=== PATIENT | female | born 1930 | race Caucasian/White ===

== ENCOUNTER 2016-06-06 12:53 | Observation (INO) | payer MEDICARE, BC ==
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
[2016-06-06] MEDS ORDERED: Take Home: Acetaminophen/HYDROcodone 325-10 MG, 5 Tab Pack PO ONE (17:33)
[2016-06-06] MEDS ORDERED: Ondansetron 4 MG Tab.DIS PO PRN (19:49)
[2016-06-06] MEDS ORDERED: Morphine 2 MG/ML Syringe IVPUSH PRN (19:49)
[2016-06-06] MEDS ORDERED: LORazepam 0.5 MG Tab PO SCH (20:00)
[2016-06-06] MEDS ORDERED: Donepezil 10 MG Tab PO SCH (20:00)
[2016-06-06] MEDS: Acetaminophen/HYDROcodone 325-5 MG Tab PO PRN (21:09)
[2016-06-06] MEDS: Enoxaparin 30 MG/0.3 ML Syringe SUBCUT SCH (22:16)
[2016-06-07] MEDS: Acetaminophen/HYDROcodone 325-5 MG Tab PO PRN ×4 (02:05→21:07)
[2016-06-07] MEDS ORDERED: Non-Formulary Medication 1 Each (Multivit-Min/Fa/Lycopene/Lut [Centrum Silver] 1 TAB) PO SCH (08:00)
[2016-06-07] MEDS: Enoxaparin 30 MG/0.3 ML Syringe SUBCUT SCH (08:30)
[2016-06-07] MEDS: SERTRALINE 25 MG PO SCH (08:31)
[2016-06-07] MEDS: LORAZEPAM 0.5 MG PO SCH (08:31)
[2016-06-07] MEDS: Aspirin 81 MG Tab.EC PO SCH (08:31)
[2016-06-07] MEDS: SYNTHROID 88 MCG PO SCH (08:31)
[2016-06-07] MEDS: DONEPEZIL 10 MG PO SCH (08:32)
[2016-06-07] MEDS ORDERED: Multivitamins with Iron/Calcium/Folic Acid/Minerals Tab PO SCH (08:39)
--- NOTE | 2016-06-07 13:25 | PN ---
Progress Note for VIRGINIA Hewitt QUICK Date: 06/07/2016 Room #: VM.203 SUBJECTIVE: Hospital day #2 on an 86-year-old who fell yesterday sustaining an acute L3 vertebral fracture. She has no pain right now. She tells me she is pretty comfortable. She is just resting in bed, but she has had more pain with movement. She is taking assist of 2 to get up and transfer to the commode. She could walk only 4 feet with a front wheel walker. Normally, she lives at home with her . She has not had any trouble breathing. No coughing. No bowel movement since admission. She normally would have one in the morning, but has not been eating all that much per family. OBJECTIVE: Vital Signs: Temperature 97.7, pulse 62, blood pressure 134/70, respiratory rate 18, and O2 of 92% on room air. General: She is in no acute distress. Heart: Regular rate and rhythm with murmur. Lungs: Sounds are clear to auscultation bilaterally without crackles or wheezes. Abdomen: Mildly distended, but soft and nontender. Extremities: Warm and dry. No edema. Musculoskeletal: Spine is palpated. There is some bruising noted, some bruising over her butt, but no tenderness to palpation. Mental Status: She pulled on my name tag to read my name off, but I do not know that she did not recognize me as her doctor. LABORATORY DATA: No lab work was performed on admission. ASSESSMENT: 1. Acute but benign-appearing mild compression fracture of L3 without evidence of retropulsion, mild compression fractures noted at T12 and L2, lumbar spinal stenosis L4-5, which was severe with some right L4 nerve root compression. She denied any leg pain. 2. Underlying dementia requiring 24-hour care. 3. Hypothyroidism with a remote history of thyroid cancer. 4. DVT prophylaxis, on Lovenox. 5. Anxiety. She is on Zoloft and Ativan. 6. Concern for constipation from hydrocodone. She has received about 3 doses. PLAN: At this point, I am going to schedule her senna. I am going to keep her up and working with therapies, potentially self pay swing for at least a couple of days or consider a snf stay. I did discuss with her family that this is going to be a prolonged recovery over the next 1-2 months, but we can certainly take it day by day. If she were to go home, she would need a commode and hospital bed and home health with some care givers in addition to her . For now, we will continue p.r.n. oral pain medicine. We will continue Lovenox for DVT prophylaxis. We will do some lab work tomorrow, start her on incentive spirometry. I am also going to do a bladder scan for postvoid residual. She is a code level 3. She is on observation status for a compression fracture of the spine and we will reassess in the AM on Monday. MKA: 06/07/2016 13:02:05 MODL: 06/07/2016 13:15:55 /[id number] AUDREY
[2016-06-08] MEDS: SYNTHROID 88 MCG PO SCH (06:24)
[2016-06-08] MEDS: Acetaminophen/HYDROcodone 325-5 MG Tab PO PRN (06:24)
[2016-06-08 07:12] LABS: CHLORIDE,CL 103 mmol/L (98-107); SODIUM,NA 140 mmol/L (136-145)
[2016-06-08] MEDS: LORAZEPAM 0.5 MG PO SCH (08:17)
[2016-06-08] MEDS: DONEPEZIL 10 MG PO SCH (08:17)
[2016-06-08] MEDS: Aspirin 81 MG Tab.EC PO SCH (08:19)
[2016-06-08] MEDS: Enoxaparin 30 MG/0.3 ML Syringe SUBCUT SCH (08:19)
[2016-06-08] MEDS: SERTRALINE 25 MG PO SCH (08:20)
[2016-06-08 08:30] VITALS: BP 140/64
--- NOTE | 2016-06-10 08:39 | DISCH ---
PRIMARY DISCHARGE DIAGNOSES: 1. Acute mild compression fracture of L3 after a fall. 2. Old compression fractures T12-L2. 3. Osteoporosis. 4. Underlying dementia requiring 24-hour care. 5. Hypothyroidism. 6. Deep venous thrombosis prophylaxis on Lovenox. 7. Long-standing anxiety. 8. Constipation due to pain medications and immobility and pain. REASON FOR ADMISSION: On the date of admission, this 86-year-old female fell, she had back pain. She had an MRI, which did show the compression fracture as well as severe spinal stenosis. She was assessed by PT, was taking max assist using 2 people to get her up and transition to the commode. She was walking only about 4 feet with her front wheeled walker. Discussion was had with the patient, her , and daughter about staying on self-pay swing bed, trying to arrange for things at home like a hospital bed and commode to eventually get her home with her . PHYSICAL EXAMINATION: Vital Signs: Otherwise, at the time of discharge, the patient's temperature 97.9, pulse 64, blood pressure 140/64, respiratory rate 20, O2 of 92% on room air. General: She is in no acute distress. Heart: Regular rate and rhythm. S1, S2 with murmur. Lungs: Sounds were clear to auscultation bilaterally without crackles or wheezes. Abdomen: Positive bowel sounds. Soft and nontender. Extremities: Warm and dry. No edema. The spine was examined. She did have some tenderness in the mid lumbar area specifically point tenderness over the lumbar vertebrae. She was also complaining of some knee pain during the night. It is unclear if this is any radicular pain or in the knees itself. LABORATORY DATA: Lab work done at the time of discharge did show white count mildly elevated at 11, sodium 140, creatinine 0.8. She had no fevers. DISCHARGE PLANS AND INSTRUCTIONS: She is going over to swing bed for further PT and OT until a point where she is able to return to home safely with family. We will also start her on calcium and D supplements instead of a regular vitamin and place her on calcitonin nasal spray to help with the pain from the compression fracture. She is code level 3. We will continue DVT prophylaxis for a couple more days until she is more mobile. MKA: 06/08/2016 08:50:51 MODL: 06/08/2016 22:44:13 /[id number]
== END 2016-06-08 09:00 | disposition swing bed (61) ==
LOC: VM.ED 12:53 → VM.MS 17:36 → UNDOADMIN 17:36 → VM.MS 17:36
PROVIDERS: ADMIT Nurse Practitioner Family; ATTEND Internal Medicine
DX: M48.56XD Collapsed vertebra, not elsewhere classified, lumbar region, subsequent encounter for fracture with routine healing (principal); M48.54XA Collapsed vertebra, not elsewhere classified, thoracic region, initial encounter for fracture; S39.012A Strain of muscle, fascia and tendon of lower back, initial encounter; F03.90 Unspecified dementia, unspecified severity, without behavioral disturbance, psychotic disturbance, mood disturbance, and anxiety; W19.XXXA Unspecified fall, initial encounter; M41.86 Other forms of scoliosis, lumbar region; I10 Essential (primary) hypertension; E03.9 Hypothyroidism, unspecified; K59.03 Drug induced constipation; F41.9 Anxiety disorder, unspecified; M16.12 Unilateral primary osteoarthritis, left hip; M51.24 Other intervertebral disc displacement, thoracic region; M81.0 Age-related osteoporosis without current pathological fracture; Z79.899 Other long term (current) drug therapy; Z79.82 Long term (current) use of aspirin
CPT/HCPCS: 36415; 51798; 72100; 72146; 72148; 72170; 80048; 85025; 96372; 97161; 99217; 99219; 99225; 99285; A9270; G0378; J1650

== ENCOUNTER 2016-06-08 08:37 | Inpatient (IN) | payer MEDICARE, BC ==
[2016-06-08] MEDS ORDERED: Acetaminophen/HYDROcodone 325-5 MG Tab PO PRN (08:44)
[2016-06-08] MEDS ORDERED: Ondansetron 4 MG Tab.DIS PO PRN (08:44)
[2016-06-08] MEDS: ACETAMINOPHEN PO PRN (12:24)
[2016-06-08] MEDS: Calcitonin (Salmon) Nasal Spray 3.7 ML Bottle NAS SCH (12:24)
[2016-06-08] MEDS: HYDROCODONE PO PRN (12:24)
--- NOTE | 2016-06-08 16:54 | PN ---
Progress Note for VIRGINIA MORALES Date: 06/08/2016 Room #: VM.203 Purpose of the dictation is for documentation for need for a hospital bed. An 86-year-old female, who suffered a compression fracture on 06/06/2016. She is requiring position of at least 30 degrees or greater due to pain from the fracture and need to be able to transfer up and out of bed with assist of her to be able to return home. Her body could not be positioned in a feasible condition in normal bed at home. She does require frequent changes in her body position to provide relief of pain. Otherwise, she does not require any traction. She recommends of bed that is of adjustable heights to help her and her family to get her out of the bed and also to allow for bed rails to help with transfers. This would allow her to get into a wheelchair or standing position. The patient was seen and examined by myself on 06/08/2016. She is currently working with physical therapy on swing bed. She will be working with Interventional Radiology for any potential interventions. I anticipate she will need a hospital bed for the next 2 months if she recovers. MKA: 06/08/2016 16:24:35 MODL: 06/08/2016 16:46:43 /[id number] AUDREY
[2016-06-08] MEDS: Calcium Carbonate/Vitamin D3 1250 MG-200 Unit Tab PO SCH (17:57)
[2016-06-09] MEDS: LEVOTHYROXINE 88 MCG PO SCH (06:47)
[2016-06-09] MEDS ORDERED: Non-Formulary Medication 1 Each PO SCH (07:00)
[2016-06-09] MEDS: Aspirin 81 MG Tab.EC PO SCH (07:43)
[2016-06-09] MEDS: Calcium Carbonate/Vitamin D3 1250 MG-200 Unit Tab PO SCH ×2 (07:43→18:31)
[2016-06-09] MEDS: Calcitonin (Salmon) Nasal Spray 3.7 ML Bottle NAS SCH (07:44)
[2016-06-09] MEDS: ACETAMINOPHEN PO PRN (07:45)
[2016-06-09] MEDS: HYDROCODONE PO PRN (07:45)
[2016-06-09] MEDS: SERTRALINE 25 MG PO SCH (07:45)
[2016-06-09] MEDS ORDERED: Enoxaparin 30 MG/0.3 ML Syringe SUBCUT SCH (08:00)
[2016-06-09] MEDS ORDERED: LORazepam 0.5 MG Tab PO SCH (08:00)
[2016-06-09] MEDS ORDERED: ENOXAPARIN 30 MG SUBCUT SCH (08:00)
[2016-06-09] MEDS ORDERED: Bisacodyl 10 MG Supp RECTAL ONE (08:33)
[2016-06-09] MEDS: Donepezil 10 MG Tab (OWN SUPPLY) PO SCH (19:57)
[2016-06-10] MEDS: HYDROCODONE PO PRN (05:27)
[2016-06-10] MEDS: LEVOTHYROXINE 88 MCG PO SCH ×2 (05:27→06:27)
[2016-06-10] MEDS: ACETAMINOPHEN PO PRN (05:27)
[2016-06-10] MEDS: Calcium Carbonate/Vitamin D3 1250 MG-200 Unit Tab PO SCH ×2 (08:20→17:09)
[2016-06-10] MEDS: Aspirin 81 MG Tab.EC PO SCH (08:20)
[2016-06-10] MEDS: Calcitonin (Salmon) Nasal Spray 3.7 ML Bottle NAS SCH (08:23)
[2016-06-10] MEDS: SERTRALINE 25 MG PO SCH (08:23)
[2016-06-10] MEDS: ENOXAPARIN 30 MG/0.3 ML SUBCUT SCH (08:25)
[2016-06-10] MEDS: Donepezil 10 MG Tab (OWN SUPPLY) PO SCH (21:26)
[2016-06-11] MEDS: LEVOTHYROXINE 88 MCG PO SCH (07:24)
[2016-06-11] MEDS: ENOXAPARIN 30 MG/0.3 ML SUBCUT SCH (07:42)
[2016-06-11] MEDS: Aspirin 81 MG Tab.EC PO SCH (07:43)
[2016-06-11] MEDS: Calcium Carbonate/Vitamin D3 1250 MG-200 Unit Tab PO SCH ×2 (07:43→17:48)
[2016-06-11] MEDS: Calcitonin (Salmon) Nasal Spray 3.7 ML Bottle NAS SCH (07:44)
[2016-06-11] MEDS: SERTRALINE 25 MG PO SCH (07:44)
[2016-06-11] MEDS ORDERED: Lisinopril 5 MG Tab PO SCH ×2 (11:15→20:00)
[2016-06-11] MEDS ORDERED: Bisacodyl 10 MG Supp RECTAL PRN (11:21)
[2016-06-11] MEDS ORDERED: Sodium Phosphate,Monobasic/Sodium Phosphate,Dibasic Enema 133 ML Bottle RECTAL ONE (17:25)
[2016-06-11] MEDS: ACETAMINOPHEN PO PRN (19:23)
[2016-06-11] MEDS: HYDROCODONE PO PRN (19:23)
[2016-06-11] MEDS: Donepezil 10 MG Tab (OWN SUPPLY) PO SCH (19:25)
[2016-06-11] MEDS: Acetaminophen 325 MG Tab PO SCH (19:28)
[2016-06-12] MEDS: HYDROCODONE PO PRN (06:03)
[2016-06-12] MEDS: ACETAMINOPHEN PO PRN (06:03)
[2016-06-12] MEDS: LEVOTHYROXINE 88 MCG PO SCH (06:03)
[2016-06-12] MEDS: Calcitonin (Salmon) Nasal Spray 3.7 ML Bottle NAS SCH (08:15)
[2016-06-12] MEDS: Aspirin 81 MG Tab.EC PO SCH (08:16)
[2016-06-12] MEDS: SERTRALINE 25 MG PO SCH (08:16)
[2016-06-12] MEDS: Acetaminophen 325 MG Tab PO SCH ×3 (08:16→19:50)
[2016-06-12] MEDS: Calcium Carbonate/Vitamin D3 1250 MG-200 Unit Tab PO SCH ×2 (08:16→17:10)
[2016-06-12] MEDS: Donepezil 10 MG Tab (OWN SUPPLY) PO SCH (19:48)
[2016-06-12] MEDS: LISINOPRIL 5 MG PO SCH (19:49)
[2016-06-13] MEDS: LEVOTHYROXINE 88 MCG PO SCH (07:50)
[2016-06-13] MEDS: Calcium Carbonate/Vitamin D3 1250 MG-200 Unit Tab PO SCH ×2 (07:50→18:39)
[2016-06-13] MEDS: Calcitonin (Salmon) Nasal Spray 3.7 ML Bottle NAS SCH (07:51)
[2016-06-13] MEDS: Aspirin 81 MG Tab.EC PO SCH (07:51)
[2016-06-13] MEDS: SERTRALINE 25 MG PO SCH (07:52)
[2016-06-13] MEDS: Acetaminophen 325 MG Tab PO SCH ×4 (07:52→23:55)
[2016-06-13] MEDS: ACETAMINOPHEN PO PRN (07:53)
[2016-06-13] MEDS: HYDROCODONE PO PRN (07:53)
[2016-06-13] MEDS: LISINOPRIL 5 MG PO SCH (23:55)
[2016-06-13] MEDS: Donepezil 10 MG Tab (OWN SUPPLY) PO SCH (23:55)
[2016-06-14] MEDS: LEVOTHYROXINE 88 MCG PO SCH (06:19)
[2016-06-14] MEDS: Acetaminophen 325 MG Tab PO SCH ×3 (08:24→20:51)
[2016-06-14] MEDS: Aspirin 81 MG Tab.EC PO SCH (08:24)
[2016-06-14] MEDS: SERTRALINE 25 MG PO SCH (08:25)
[2016-06-14] MEDS: Calcium Carbonate/Vitamin D3 1250 MG-200 Unit Tab PO SCH ×2 (08:25→19:02)
[2016-06-14] MEDS: Calcitonin (Salmon) Nasal Spray 3.7 ML Bottle NAS SCH (08:26)
[2016-06-14] MEDS: Donepezil 10 MG Tab (OWN SUPPLY) PO SCH (20:51)
[2016-06-14] MEDS: LISINOPRIL 5 MG PO SCH (20:53)
[2016-06-15] MEDS: Acetaminophen 325 MG Tab PO SCH ×4 (04:33→20:25)
[2016-06-15] MEDS: SERTRALINE 25 MG PO SCH ×2 (04:34→07:30)
[2016-06-15] MEDS: LEVOTHYROXINE 88 MCG PO SCH ×3 (04:34→07:29)
[2016-06-15] MEDS: Calcitonin (Salmon) Nasal Spray 3.7 ML Bottle NAS SCH ×2 (04:35→07:30)
[2016-06-15] MEDS: Aspirin 81 MG Tab.EC PO SCH ×2 (04:37→07:30)
[2016-06-15] MEDS: Calcium Carbonate/Vitamin D3 1250 MG-200 Unit Tab PO SCH ×3 (04:37→20:25)
[2016-06-15] MEDS: Donepezil 10 MG Tab (OWN SUPPLY) PO SCH (20:27)
[2016-06-15] MEDS: LISINOPRIL 5 MG PO SCH (20:28)
[2016-06-16] MEDS: LEVOTHYROXINE 88 MCG PO SCH (06:18)
[2016-06-16] MEDS: Calcium Carbonate/Vitamin D3 1250 MG-200 Unit Tab PO SCH ×2 (07:53→19:57)
[2016-06-16] MEDS: Acetaminophen 325 MG Tab PO SCH ×3 (07:53→19:54)
[2016-06-16] MEDS: Aspirin 81 MG Tab.EC PO SCH (07:53)
[2016-06-16] MEDS: Calcitonin (Salmon) Nasal Spray 3.7 ML Bottle NAS SCH (07:56)
[2016-06-16] MEDS: SERTRALINE 25 MG PO SCH (07:57)
[2016-06-16] MEDS ORDERED: Lactulose Soln 10 GM/15 ML 30 ML UD Cup PO SCH (09:03)
[2016-06-16] MEDS: HYDROCODONE PO PRN (09:12)
[2016-06-16] MEDS: ACETAMINOPHEN PO PRN (09:12)
--- NOTE | 2016-06-16 09:30 | PN ---
Progress Note for VIRGINIA Hewitt ANDREW Date: 06/16/2016 Room #: VM.203 SUBJECTIVE: This is an 86-year-old who had an L3 vertebroplasty yesterday. She was doing well last night. But this morning, her pain is more severe. She did not take a pain pill because her fears that it constipates her, but she did have a bowel movement started yesterday. She otherwise has not had any trouble breathing. Her last pain pill was like 3 days ago. OBJECTIVE: Vital Signs: Temperature 98.7, pulse 71, blood pressure 149/75, respiratory rate 20, O2 of 92% on room air. General: She is in no acute distress. Heart: Regular rate and rhythm. S1, S2 without murmur. Lungs: Lungs sounds are clear to auscultation bilaterally without crackles or wheezes. Abdomen: Positive bowel sounds. Soft and nontender. Back: Examined. There is dressing over her lower lumbar spine. When I palpate inferior to that, around L4, she says "ow, ow, you are hurting me." She also did tell me her legs hurt, but there was no pain to palpation. No swelling. ASSESSMENT AND PLAN: Back pain with acute compression fracture L3, now worsening low back pain after improvement with vertebroplasty. We will do a lumbar x-ray today to rule out any further compression. PT will wait until after the x-ray to work with her. OT was already trying to work with her and get her up with the aid, and they were unable. Discussed with her that she will not be stable to go home this morning. Encourage pain management, encourage a bowel regimen. We will add lactulose daily to her Senna Plus. MKA: 06/16/2016 09:07:14 MODL: 06/16/2016 09:23:12 /[id number]
[2016-06-16] MEDS: LACTULOSE 20 GM/30 ML PO SCH (14:26)
[2016-06-16] MEDS: Donepezil 10 MG Tab (OWN SUPPLY) PO SCH (19:54)
[2016-06-16] MEDS: LISINOPRIL 5 MG PO SCH (19:57)
[2016-06-17] MEDS: LEVOTHYROXINE 88 MCG PO SCH (06:31)
[2016-06-17] MEDS: Calcium Carbonate/Vitamin D3 1250 MG-200 Unit Tab PO SCH ×2 (08:53→18:24)
[2016-06-17] MEDS: Aspirin 81 MG Tab.EC PO SCH (08:53)
[2016-06-17] MEDS: Calcitonin (Salmon) Nasal Spray 3.7 ML Bottle NAS SCH (08:53)
[2016-06-17] MEDS: SERTRALINE 25 MG PO SCH (08:55)
[2016-06-17] MEDS: Acetaminophen 325 MG Tab PO SCH ×3 (08:55→20:24)
[2016-06-17] MEDS: HYDROCODONE PO PRN ×2 (08:57→16:27)
[2016-06-17] MEDS: ACETAMINOPHEN PO PRN ×2 (08:57→16:27)
[2016-06-17] MEDS: LACTULOSE 20 GM/30 ML PO SCH (08:57)
[2016-06-17] MEDS: LISINOPRIL 5 MG PO SCH (20:24)
[2016-06-17] MEDS: Donepezil 10 MG Tab (OWN SUPPLY) PO SCH (20:24)
[2016-06-18] MEDS: LEVOTHYROXINE 88 MCG PO SCH (06:50)
[2016-06-18] MEDS: Calcium Carbonate/Vitamin D3 1250 MG-200 Unit Tab PO SCH ×2 (08:08→17:54)
[2016-06-18] MEDS: Aspirin 81 MG Tab.EC PO SCH (08:08)
[2016-06-18] MEDS: Calcitonin (Salmon) Nasal Spray 3.7 ML Bottle NAS SCH (08:08)
[2016-06-18] MEDS: Acetaminophen 325 MG Tab PO SCH ×3 (08:09→20:12)
[2016-06-18] MEDS: SERTRALINE 25 MG PO SCH (08:10)
[2016-06-18] MEDS: LACTULOSE 20 GM/30 ML PO SCH (08:15)
[2016-06-18] MEDS: HYDROCODONE PO PRN (09:03)
[2016-06-18] MEDS: ACETAMINOPHEN PO PRN (09:03)
[2016-06-18] MEDS: LISINOPRIL 5 MG PO SCH (20:13)
[2016-06-18] MEDS: Donepezil 10 MG Tab (OWN SUPPLY) PO SCH (20:13)
[2016-06-19] MEDS: LEVOTHYROXINE 88 MCG PO SCH (06:21)
[2016-06-19] MEDS: Acetaminophen 325 MG Tab PO SCH ×3 (07:47→21:13)
[2016-06-19] MEDS: Calcium Carbonate/Vitamin D3 1250 MG-200 Unit Tab PO SCH ×2 (07:47→17:40)
[2016-06-19] MEDS: Aspirin 81 MG Tab.EC PO SCH (07:47)
[2016-06-19] MEDS: Calcitonin (Salmon) Nasal Spray 3.7 ML Bottle NAS SCH (07:49)
[2016-06-19] MEDS: LACTULOSE 20 GM/30 ML PO SCH (07:53)
[2016-06-19] MEDS: SERTRALINE 25 MG PO SCH (07:53)
[2016-06-19] MEDS: LISINOPRIL 5 MG PO SCH (21:13)
[2016-06-19] MEDS: Donepezil 10 MG Tab (OWN SUPPLY) PO SCH (21:13)
[2016-06-20] MEDS: LEVOTHYROXINE 88 MCG PO SCH (06:45)
[2016-06-20] MEDS: Aspirin 81 MG Tab.EC PO SCH (08:05)
[2016-06-20] MEDS: Acetaminophen 325 MG Tab PO SCH ×3 (08:05→19:54)
[2016-06-20] MEDS: Calcium Carbonate/Vitamin D3 1250 MG-200 Unit Tab PO SCH ×2 (08:05→18:25)
[2016-06-20] MEDS: LACTULOSE 20 GM/30 ML PO SCH (08:07)
[2016-06-20] MEDS: Calcitonin (Salmon) Nasal Spray 3.7 ML Bottle NAS SCH (08:08)
[2016-06-20] MEDS: SERTRALINE 25 MG PO SCH (08:09)
[2016-06-20] MEDS: LISINOPRIL 5 MG PO SCH (19:56)
[2016-06-20] MEDS: Donepezil 10 MG Tab (OWN SUPPLY) PO SCH (19:57)
[2016-06-21] MEDS: LEVOTHYROXINE 88 MCG PO SCH (06:47)
[2016-06-21 06:59] VITALS: BP 136/63
[2016-06-21 07:30] LABS: CHLORIDE,CL 104 mmol/L (98-107); SODIUM,NA 141 mmol/L (136-145)
[2016-06-21] MEDS: Aspirin 81 MG Tab.EC PO SCH (09:31)
[2016-06-21] MEDS: Calcium Carbonate/Vitamin D3 1250 MG-200 Unit Tab PO SCH (09:31)
[2016-06-21] MEDS: Acetaminophen 325 MG Tab PO SCH (09:32)
[2016-06-21] MEDS: SERTRALINE 25 MG PO SCH (09:33)
--- NOTE | 2016-06-22 02:20 | DISCH ---
PRIMARY DISCHARGE DIAGNOSES: 1. An acute L3 compression fracture status post vertebroplasty on 06/15/2016 with some continued pain and immobility related to the fracture. 2. Long-standing moderate dementia with some behavioral disturbances mainly anxiety. She does better when family is at the bedside. There was no concerning behavioral problems noted during her stay. 3. Hyperlipidemia. 4. Hypothyroidism. 5. History of mitral regurgitation. 6. 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 7. Essential hypertension, not on medications on this admission, but lisinopril started and doing well with that. Lab work remained stable. 8. Osteopenia, previously took Fosamax. 9. Essential tremor. 10.Pre-diabetes. 11.Osteoarthritis. 12.Chronic anxiety on Zoloft and Ativan daily. 13.History of diverticulitis in the past. 14.T12 and L2 compression fractures and advanced degenerative disc changes between T11-T12 and L5-S1 based on MRI done 06/06/2016. REASON FOR ADMISSION: On the date of admission, this 86-year-old female who lives at home with her had suffered a fall. She was brought into the emergency room and found to have an L3 compression fracture. We arranged for her to go to [facility] and have evaluation and possible vertebroplasty which was performed on 06/15. She did well postop when she came back she really had no pain that evening, but by the next morning, she was having severe pain again. We did x-rays to rule out any new compression fractures. It was felt that maybe pain pills would help her to function better, so she did take them maybe 1-2 times a day when working with therapy. She started to do better with therapies but still overall was requiring more assistance, therefore family conference was held and decision was made to go to [facility] for further therapies to recover from her injury before returning home. Otherwise, during her stay, she did have some constipation which was worked on with stool softeners and suppositories; however, she began having loose stools, so stool softeners were discontinued and made p.r.n. on discharge, lactulose was discontinued completely. She also had elevated blood pressures during her stay, even up into the 180 systolic. She was started on lisinopril. She was tolerating that. Repeat BMP was okay. Did discuss this with her daughter that the blood pressure pill was to continue at the alf. Otherwise, she did try some calcitonin initially to see if it would help her pain, it did not seem to help, therefore I discontinued that. DISCHARGE PLANS AND INSTRUCTIONS: The patient is being transferred up to [facility]. I will see her on alf rounds on 06/06. No pain pills were ordered. Her last dose in the hospital was on 06/18. If pain pills are needed, they should contact me. PHYSICAL EXAMINATION: Vital signs: Otherwise, her vital signs at the time of discharge show her to have a temperature of 97.7, pulse 65, blood pressure 136/63, respiratory rate 16, and O2 of 95% on room air. General: She is in no acute distress. Heart: Regular rate and rhythm. S1, S2 without murmur. Lungs: Sounds are clear to auscultation bilaterally without crackles or wheezes. Abdomen: Positive bowel sounds. Soft and nontender. Extremities: Warm and dry. No edema. Mental Status: She is alert. She recognizes her , but she is disorientated and forgetful and the fact that she does not even remember having vertebroplasty last week. Otherwise, she did receive some Lovenox for DVT prophylaxis during her stay which was discontinued when she was more ambulatory, otherwise she does have a followup with Dr. Hoffman with IR in the clinic on 06/24 as well and her plans to take her to this appointment. She will continue with alf cares for PT and OT. AMYA: 06/21/2016 11:14:35 MODL: 06/22/2016 02:13:16 /[id number] AUDREY
== END 2016-06-21 11:15 | DRG 561 ==
LOC: VM.MS 09:00 → UNDOADMIN 09:58 → VM.MS 09:58
PROVIDERS: ADMIT Internal Medicine; ATTEND Internal Medicine
DX: S32.030D Wedge compression fracture of third lumbar vertebra, subsequent encounter for fracture with routine healing (principal); S22.080D Wedge compression fracture of T11-T12 vertebra, subsequent encounter for fracture with routine healing; S32.010D Wedge compression fracture of first lumbar vertebra, subsequent encounter for fracture with routine healing; S32.020D Wedge compression fracture of second lumbar vertebra, subsequent encounter for fracture with routine healing; W19.XXXD Unspecified fall, subsequent encounter; M81.0 Age-related osteoporosis without current pathological fracture; F03.90 Unspecified dementia, unspecified severity, without behavioral disturbance, psychotic disturbance, mood disturbance, and anxiety; E03.9 Hypothyroidism, unspecified; F41.9 Anxiety disorder, unspecified; K59.03 Drug induced constipation; E78.5 Hyperlipidemia, unspecified; Z85.850 Personal history of malignant neoplasm of thyroid; I10 Essential (primary) hypertension; Z87.19 Personal history of other diseases of the digestive system
CPT/HCPCS: 36415; 72100; 80048; 85025; 97110-GP; 97116-GP; 97165-GO; 97530-GP; 97535-GO; A9270-GY; J1650

== ENCOUNTER 2016-09-02 14:20 | Emergency (ER) | payer MEDICARE, BC ==
[2016-09-02 15:21] LABS: CHLORIDE,CL 108 mmol/L (98-107); SODIUM,NA 143 mmol/L (136-145)
[2016-09-02] MEDS ORDERED: Sodium Chloride 0.9% 10 ML Syringe FLUSH PRN (16:37)
[2016-09-02] MEDS ORDERED: Morphine 4 MG/ML Syringe IVPUSH ONE (16:47)
--- NOTE | 2016-09-02 18:58 | ER ---
Date of Service: 09/02/2016 HISTORY OF PRESENT ILLNESS: Aditi presents to the emergency room with complaints of pain to her left wrist and upper arm. The patient's states that he was in front of her walking up some stairs to get into their home and the patient was either on the bottom step or on the 2nd step from the bottom and apparently misstepped and fell onto her left side. The patient states that she is not sure if she struck her head, but the states that she was alert after the event. She does have a history of dementia and is currently on Aricept. The patient's only complaints are that of left wrist and pain into her proximal upper arm. She states that she is not experiencing any chest pain or shortness of breath prior to or after the event. PAST MEDICAL HISTORY: 1. Hypertension. 2. Dementia. 3. Chronic constipation. 4. Vitamin D deficiency. 5. Depression. 6. Anxiety. 7. Hypothyroidism. MEDICATIONS: 1. Zoloft. 2. Centrum Silver. 3. Lisinopril. 4. Synthroid. 5. Lorazepam. 6. Aricept. 7. Senna Plus. 8. Calcium plus D. 9. Dulcolax. 10.Low-dose aspirin. 11.Tylenol. ALLERGIES: Codeine. REVIEW OF SYSTEMS: General: Denies any fever or chills or recent illness. HEENT: Denies any head or facial trauma or discomfort. Chest: Denies any chest pain, shortness of breath or chest wall discomfort. Abdomen: Denies any abdominal pain. Pelvis: Denies any pelvic pain. Musculoskeletal: Please see history of present illness. No complaints of discomfort to the lower extremities. PHYSICAL EXAMINATION: General: This is an 86-year-old female patient. No acute distress. Vital Signs: Blood pressure is 161/71, heart rate is 58, respiratory rate 16, O2 saturations 97%, and temp is 96.0. Skin: Warm, pink, and dry. HEENT: Head is normocephalic and atraumatic. Eyes, PERRLA. Extraocular movements are intact. There is no head or facial trauma noted. Spine: No midline C-spine, thoracic, or lumbar discomfort noted on palpation. Chest: No chest wall trauma noted. Lungs: Clear to auscultation. Heart: Regular rate and rhythm. Abdomen: No abdominal trauma on palpation. No bruising or rigidity noted. Pelvis is stable. Musculoskeletal: No discomfort with flexion or extension with manipulation of the hip joints. No obvious trauma noted to the lower extremities. She does have discomfort and swelling to the proximal portion of the left humerus and also evidence of discomfort on palpation of the distal radius and ulna and also to the carpal bones. Neurovascular: Circulation, sensation, and motor function are within normal limits in the distal portion of both her upper and lower extremities. LABORATORY DATA: WBC is 9.0, hemoglobin is 12.0, and platelets are 294. Coags; PT is 10.5, INR is 0.9. Chemistry; sodium is 143, potassium is 3.7, chloride is 108, bicarb is 29, BUN is 15, and creatinine is 0.8. GFR is greater than 60. Glucose is 171, calcium is 8.3, corrected calcium is 9.02, total bilirubin is 0.2, AST is 16, ALT is 21, and alkaline phosphatase is 70. Troponin is less than 0.017. Total protein is 6.6, albumin is 3.1. CT scan of the patient's brain and C-spine were obtained. There was no evidence of any acute pathology. Radiographs of the patient's left humerus were obtained. She does have evidence of a comminuted fracture of the left proximal humerus. Radiographs of the patient's left tibia and fibula were obtained and she does have evidence of a displaced distal radius and ulna fracture. EMERGENCY ROOM COURSE: IV access was established. She was given 4 mg of morphine IV. A short-arm splint was placed on the left wrist. The patient was subsequently placed in a sling and did tolerate this well. She remained stable in my care in the emergency room. ASSESSMENT: Left proximal humerus fracture and left distal radius/ulna fracture. PLAN: I did speak with Dr. Mills, the hand surgeon at [facility] in [place]. I also did speak with Orthopedic surgery regarding the proximal humerus fracture. The humerus fracture will be treated nonoperatively and the wrist fracture will require closed reduction and reduction by a Hand Surgery at [facility] in [place]. Also, the patient is being cared for by her and certainly with her injuries, he will have difficulties managing the patient; so she will require hospitalization at In med/Surg at [facility] and followed up with physical therapy. Social work to see if she is a candidate for placement back in her home. The patient will be transported by ground ambulance. All questions were answered. MWK: 09/02/2016 17:29:12 MODL: 09/02/2016 18:16:22 /[id number]
[2016-09-02 20:28] VITALS: BP 145/67
== END 2016-09-02 17:20 | disposition short-term general hospital (02) ==
LOC: VM.ED 14:20
DX: S42.202A Unspecified fracture of upper end of left humerus, initial encounter for closed fracture (principal); S52.502A Unspecified fracture of the lower end of left radius, initial encounter for closed fracture; S52.602A Unspecified fracture of lower end of left ulna, initial encounter for closed fracture; I10 Essential (primary) hypertension; F03.90 Unspecified dementia, unspecified severity, without behavioral disturbance, psychotic disturbance, mood disturbance, and anxiety; F41.9 Anxiety disorder, unspecified; F32.9 Major depressive disorder, single episode, unspecified; E03.9 Hypothyroidism, unspecified; Z88.5 Allergy status to narcotic agent; W10.8XXA Fall (on) (from) other stairs and steps, initial encounter; Y92.009 Unspecified place in unspecified non-institutional (private) residence as the place of occurrence of the external cause
CPT/HCPCS: 29125; 36415; 70450; 72125; 73060; 73090; 80053; 84484; 85025; 85610; 93005; 96374; 99285; J2270; J7050

== ENCOUNTER 2016-09-20 11:10 | Inpatient (IN) | payer MEDICARE, BC ==
[2016-09-20] MEDS ORDERED: Bisacodyl 5 MG Tab PO PRN (12:56)
[2016-09-20] MEDS: Acetaminophen 500 MG Tab PO SCH ×2 (16:51→20:08)
[2016-09-20] MEDS: Psyllium 0.52 GM Cap PO SCH (20:08)
[2016-09-20] MEDS: Donepezil 10 MG Tab PO SCH (20:08)
--- NOTE | 2016-09-21 00:27 | HP ---
CHIEF COMPLAINT: Left humerus fracture and left wrist fracture. HISTORY OF PRESENT ILLNESS: This is an 86-year-old female, who had a fall at home sustaining those fractures. She was recommended for surgery which she was readmitted on 09/16/2016 and discharged for on 09/20/2016. She underwent ORIF for her radius and ulna was by Dr. Adalberto Mills and then Dr. Candelaria performed an ORIF for the left proximal humerus. She did have some issues with postoperative anemia. However, she did not require any transfusion. She was recommended to continue on aspirin just 81 mg daily for DVT prophylaxis. Initially, she was requiring some oxycodone for pain control, but on discharge she was using just Tylenol. She does have underlying history of dementia. She also has hypothyroidism from a history of thyroid cancer, but her had not increased her from 88 to 100 mcg of levothyroxine yet. Otherwise, Aditi denies any pain today she says to her over and over again, " You won't not leave me, will you," she does not like to be left alone. She denies any trouble breathing. PAST MEDICAL HISTORY: Includes osteoporosis with previous L3 compression fracture and vertebroplasty back in May along with chronic L2 and T12 compression fractures that were treated conservatively. Her last DEXA scan which was done in 2015 had showed her T-score to actually only be -1.6 at the hip. Otherwise, she has had hyperlipidemia, hypothyroidism, mild mitral regurgitation, history of thyroid cancer stage I papillary, adjustment disorder with anxiety and depression, dementia without behavioral disturbance, diverticulitis, previous admission for abscess and IR drainage, osteoarthritis status post left knee replacement, essential tremor, prediabetes, essential hypertension not on medications currently, but has taken up in the past. ALLERGIES: Included codeine, cause is unspecified. MEDICATION: Medication list currently on discharge did include Tylenol 500 mg 2 tablets 3 times a day, Dulcolax as needed, oxycodone as needed, Ativan 0.5 mg daily as needed, levothyroxine 100 mcg daily, Metamucil 1 capsule daily, calcium and vitamin D, multivitamin, Aricept 10 mg daily, Zoloft 25 mg daily and aspirin 81 mg daily. SOCIAL HISTORY: The patient lives at home with her . She has dementia. He is her caregiver. She is a nonsmoker and nondrinker. She did go to nurses training, otherwise. PAST SURGICAL HISTORY: Total thyroidectomy, joint replacement of the left knee, hysterectomy, cholecystectomy, previous back surgery for compression fracture, and appendectomy. FAMILY HISTORY: Both parents are . Brother and sister are . Sister did have dementia, it was her twin sister. Her brother had prostate cancer. REVIEW OF SYSTEMS: General: She denies any trouble with weight, fever, or chills. HEENT: No sore throat. Cardiac: No chest pain. Respiratory: No cough, no shortness of breath. Abdominal: No abdominal pain. No nausea, vomiting, diarrhea, or constipation currently. Musculoskeletal: She denies any arm pain. She had does have some bruising and swelling as to be expected after surgery. Otherwise, all systems reviewed and found to be negative unless otherwise stated. PHYSICAL EXAMINATION: Vital Signs: Include a temperature of 97.7, pulse 72, blood pressure 128/77, respiratory rate 16, and O2 of 96% on room air. General: She is in no acute distress. Heart: Regular rate and rhythm with murmur. Lungs: Sounds are clear to auscultation bilaterally without crackles or wheezes. Abdomen: Positive bowel sounds. Soft and nontender. Extremities: Warm and dry. There is bruising over the left shoulder. There is a bandage in place. I did not remove it today. There is no warmth or drainage. Otherwise, the left wrist incision is covered by a brace with instructions to leave that in place until her followup next Monday, so this was not removed either. Otherwise, her cap refill is good on her fingers on the left hand, finger motion is good. Mental Status: She recognizes her , but she does not remember being in the hospital before or know where she is at currently. LABORATORY DATA: Lab work should be reported that her creatinine was normal at 0.4 couple days ago. Calcium was actually low at 7.6, phosphorus 2.4, albumin 2.9, and hemoglobin was 9.2. ASSESSMENT: 1. Postoperative from an open reduction and internal fixation to the left wrist as well as humerus on 09/16/2016. 2. Postoperative anemia. Hemoglobin had went down on her recheck. 3. Dementia without behavioral disturbances. 4. Anxiety and depression. 5. Mild hypertension, not requiring any medications. 6. Hypothyroidism, slightly under treated with history of thyroid cancer. We will increase her levothyroxine to 100. PLAN: At this point, the patient will continue on swing bed cares. Physical therapy will work with her, PT for hand therapy. She did receive some Lovenox postop in the hospital, but at this point, we will continue on aspirin. She will be in the splint, [place] splint placed by OT, and follow up with Dr. Mills around 09/26/2016 and hand therapy as well. She will have suture removal at that appointment. Her appointment with [facility] was discontinued. I have discussed extensively with him trying the Forteo shots again especially while she is in the hospital to aid with bone healing, her is agreeable to this. Otherwise, she is also nonweightbearing on the left wrist and arm. She will keep her shoulder in the sling. Her would like to take her home as soon as possible, but does not know how to manage the slings and currently is okay with her being in swing bed. Discussed also with him that she will be a code 3, no CPR. I asked the social media manager to update their forms that were filled out at [facility]. The daughter is also present for this discussion and said it is up to her father as well, but he understood that, Aditi at this point has dementia, she is also getting frailer, so if she did have an unexpected cardiac arrest, I would not anticipate she would have a good recovery from that or even much chance of surviving, but around the time of surgery, I did say it is important to follow through with treatments which she has been through that 24 to 48 hour process already. Otherwise, the patient will only be on Tylenol for pain control unless she is needing further pain management, at that point, the nurses should contact me. All medications will be available p.r.n. MKA: 09/20/2016 19:38:29 MODL: 09/21/2016 00:22:42 /[id number]
[2016-09-21] MEDS: Levothyroxine 100 MCG Tab PO SCH (06:35)
[2016-09-21] MEDS ORDERED: Calcium Carbonate/Vitamin D3 1250 MG-200 Unit Tab PO SCH (08:00)
[2016-09-21] MEDS: Sertraline 25 MG Tab PO SCH (08:46)
[2016-09-21] MEDS: LORazepam 0.5 MG Tab PO SCH (08:47)
[2016-09-21] MEDS: Aspirin 81 MG Tab.EC PO SCH (08:47)
[2016-09-21] MEDS: Acetaminophen 500 MG Tab PO SCH ×3 (08:47→20:38)
[2016-09-21] MEDS: Multivitamins with Iron/Calcium/Folic Acid/Minerals Tab PO SCH (08:47)
[2016-09-21] MEDS: Donepezil 10 MG Tab PO SCH (20:38)
[2016-09-21] MEDS: Psyllium 0.52 GM Cap PO SCH (20:39)
[2016-09-22] MEDS: Levothyroxine 100 MCG Tab PO SCH (06:13)
[2016-09-22] MEDS: Calcium Citrate/Vitamin D3 315 MG-250 Unit Tab PO SCH (08:52)
[2016-09-22] MEDS: Aspirin 81 MG Tab.EC PO SCH (08:53)
[2016-09-22] MEDS: Sertraline 25 MG Tab PO SCH (08:53)
[2016-09-22] MEDS: Multivitamins with Iron/Calcium/Folic Acid/Minerals Tab PO SCH (08:53)
[2016-09-22] MEDS: Acetaminophen 500 MG Tab PO SCH ×3 (08:54→20:07)
[2016-09-22] MEDS: LORazepam 0.5 MG Tab PO SCH (08:54)
[2016-09-22] MEDS: Donepezil 10 MG Tab PO SCH (20:07)
[2016-09-22] MEDS: Psyllium 0.52 GM Cap PO SCH (20:42)
[2016-09-23] MEDS: Levothyroxine 100 MCG Tab PO SCH (06:20)
[2016-09-23] MEDS: LORazepam 0.5 MG Tab PO SCH (08:07)
[2016-09-23] MEDS: Sertraline 25 MG Tab PO SCH (08:07)
[2016-09-23] MEDS: Multivitamins with Iron/Calcium/Folic Acid/Minerals Tab PO SCH (08:08)
[2016-09-23] MEDS: Aspirin 81 MG Tab.EC PO SCH (08:08)
[2016-09-23] MEDS: Calcium Citrate/Vitamin D3 315 MG-250 Unit Tab PO SCH (08:08)
[2016-09-23] MEDS: Acetaminophen 500 MG Tab PO SCH ×3 (08:08→20:20)
--- NOTE | 2016-09-23 16:02 | PN ---
Progress Note for VIRGINIA Hewitt QUICK Date: 09/23/2016 Room #: VM.221 SUBJECTIVE: This is an 86-year-old on swing bed after surgery for a left humerus and wrist fracture. She has a followup with Orthopedics next week. They will remove her jose and splint. She otherwise has no concerns. She denies pain. She has not required any narcotics. Her blood pressure has run higher. This had happened also previously when she was here. She seems to be more anxious in the morning until family or caregiver are with her. In the room currently, she is with a caregiver who just fixed her hair. She is in a pleasant mood. OBJECTIVE: Vital Signs: Her temperature is 98.4, pulse 76,blood pressure 164/92, respiratory rate 18, and O2 of 97% on room air. General: She is in no acute distress heart regular rate and rhythm with murmur. Lungs: Sounds are clear to auscultation bilaterally without crackles or wheezes. ASSESSMENT: Postoperative from an open reduction internal fixation to the left wrist as well to the humerus 08/2016, postoperative anemia with repeat hemoglobin of 9.2 on 09/21, dementia without behavioral disturbance, anxiety and depression, mild hypertension, hypothyroidism on increased doses of levothyroxine. PLAN: At this point, she will continue swing bed cares with PT and OT. Family meeting will be had next week. was actually hopeful to take her home as soon as possible. Follow up with ortho in the clinic next week. Continue Tylenol for pain control. Continue to monitor blood pressures and we will do another CBC on Monday. MKA: 09/23/2016 15:04:37 MODL: 09/23/2016 15:15:17 /[id number] AUDREY
[2016-09-23] MEDS: Donepezil 10 MG Tab PO SCH (20:22)
[2016-09-23] MEDS: Psyllium 0.52 GM Cap PO SCH (20:22)
[2016-09-24] MEDS: Levothyroxine 100 MCG Tab PO SCH (06:37)
[2016-09-24] MEDS: LORazepam 0.5 MG Tab PO SCH (07:25)
[2016-09-24] MEDS: Sertraline 25 MG Tab PO SCH (07:25)
[2016-09-24] MEDS: Aspirin 81 MG Tab.EC PO SCH (07:25)
[2016-09-24] MEDS: Multivitamins with Iron/Calcium/Folic Acid/Minerals Tab PO SCH (07:25)
[2016-09-24] MEDS: Calcium Citrate/Vitamin D3 315 MG-250 Unit Tab PO SCH (07:25)
[2016-09-24] MEDS: Acetaminophen 500 MG Tab PO SCH ×3 (07:26→20:16)
[2016-09-24] MEDS: Donepezil 10 MG Tab PO SCH (20:16)
[2016-09-24] MEDS: Psyllium 0.52 GM Cap PO SCH (20:17)
[2016-09-25] MEDS: Levothyroxine 100 MCG Tab PO SCH (06:39)
[2016-09-25] MEDS: Aspirin 81 MG Tab.EC PO SCH (07:39)
[2016-09-25] MEDS: Multivitamins with Iron/Calcium/Folic Acid/Minerals Tab PO SCH (07:39)
[2016-09-25] MEDS: LORazepam 0.5 MG Tab PO SCH (07:39)
[2016-09-25] MEDS: Sertraline 25 MG Tab PO SCH (07:39)
[2016-09-25] MEDS: Acetaminophen 500 MG Tab PO SCH ×3 (07:39→19:59)
[2016-09-25] MEDS: Calcium Citrate/Vitamin D3 315 MG-250 Unit Tab PO SCH (07:39)
[2016-09-25] MEDS: Donepezil 10 MG Tab PO SCH (19:58)
[2016-09-25] MEDS: Psyllium 0.52 GM Cap PO SCH (20:01)
[2016-09-26] MEDS: Levothyroxine 100 MCG Tab PO SCH (06:23)
[2016-09-26] MEDS: LORazepam 0.5 MG Tab PO SCH (07:35)
[2016-09-26] MEDS: Calcium Citrate/Vitamin D3 315 MG-250 Unit Tab PO SCH (07:35)
[2016-09-26] MEDS: Multivitamins with Iron/Calcium/Folic Acid/Minerals Tab PO SCH (07:35)
[2016-09-26] MEDS: Acetaminophen 500 MG Tab PO SCH ×3 (07:36→19:35)
[2016-09-26] MEDS: Aspirin 81 MG Tab.EC PO SCH (07:36)
[2016-09-26] MEDS: Sertraline 25 MG Tab PO SCH (07:36)
[2016-09-26] MEDS: Donepezil 10 MG Tab PO SCH (19:35)
[2016-09-26] MEDS: Psyllium 0.52 GM Cap PO SCH (20:07)
[2016-09-27] MEDS: Levothyroxine 100 MCG Tab PO SCH (06:24)
[2016-09-27] MEDS: Sertraline 25 MG Tab PO SCH (07:40)
[2016-09-27] MEDS: Aspirin 81 MG Tab.EC PO SCH (07:40)
[2016-09-27] MEDS: Calcium Citrate/Vitamin D3 315 MG-250 Unit Tab PO SCH (07:40)
[2016-09-27] MEDS: Multivitamins with Iron/Calcium/Folic Acid/Minerals Tab PO SCH (07:40)
[2016-09-27] MEDS: LORazepam 0.5 MG Tab PO SCH (07:40)
[2016-09-27] MEDS: Acetaminophen 500 MG Tab PO SCH ×3 (07:41→20:00)
[2016-09-27] MEDS: Donepezil 10 MG Tab PO SCH (20:00)
[2016-09-27] MEDS: Psyllium 0.52 GM Cap PO SCH (21:58)
[2016-09-28] MEDS: Levothyroxine 100 MCG Tab PO SCH (06:18)
[2016-09-28] MEDS: LORazepam 0.5 MG Tab PO SCH (07:39)
[2016-09-28] MEDS: Sertraline 25 MG Tab PO SCH (07:40)
[2016-09-28] MEDS: Aspirin 81 MG Tab.EC PO SCH (07:40)
[2016-09-28] MEDS: Calcium Citrate/Vitamin D3 315 MG-250 Unit Tab PO SCH (07:40)
[2016-09-28] MEDS: Multivitamins with Iron/Calcium/Folic Acid/Minerals Tab PO SCH (07:40)
[2016-09-28] MEDS: Acetaminophen 500 MG Tab PO SCH ×3 (07:41→19:52)
[2016-09-28] MEDS: Donepezil 10 MG Tab PO SCH (19:52)
[2016-09-28] MEDS: Psyllium 0.52 GM Cap PO SCH (19:53)
[2016-09-29] MEDS: Levothyroxine 100 MCG Tab PO SCH (06:13)
[2016-09-29] MEDS: Calcium Citrate/Vitamin D3 315 MG-250 Unit Tab PO SCH (08:23)
[2016-09-29] MEDS: Multivitamins with Iron/Calcium/Folic Acid/Minerals Tab PO SCH (08:24)
[2016-09-29] MEDS: Aspirin 81 MG Tab.EC PO SCH (08:25)
[2016-09-29] MEDS: Acetaminophen 500 MG Tab PO SCH ×3 (08:25→20:04)
[2016-09-29] MEDS: LORazepam 0.5 MG Tab PO SCH (08:25)
[2016-09-29] MEDS: Sertraline 25 MG Tab PO SCH (08:25)
[2016-09-29] MEDS: Psyllium 0.52 GM Cap PO SCH (20:04)
[2016-09-29] MEDS: Donepezil 10 MG Tab PO SCH (20:04)
[2016-09-30 06:15] VITALS: BP 131/74
[2016-09-30] MEDS: Levothyroxine 100 MCG Tab PO SCH (06:38)
[2016-09-30] MEDS: Acetaminophen 500 MG Tab PO SCH (07:47)
[2016-09-30] MEDS: Calcium Citrate/Vitamin D3 315 MG-250 Unit Tab PO SCH (07:48)
[2016-09-30] MEDS: LORazepam 0.5 MG Tab PO SCH (07:48)
[2016-09-30] MEDS: Multivitamins with Iron/Calcium/Folic Acid/Minerals Tab PO SCH (07:48)
[2016-09-30] MEDS: Aspirin 81 MG Tab.EC PO SCH (07:48)
[2016-09-30] MEDS: Sertraline 25 MG Tab PO SCH (07:49)
--- NOTE | 2016-09-30 21:18 | DISCH ---
PRIMARY DISCHARGE DIAGNOSIS: Postoperative from a left humerus fracture and left wrist fracture status post ORIF of the radius and ulna on 09/16/2016 and ORIF of the left proximal humerus on 09/20/2016. SECONDARY DISCHARGE DIAGNOSES: 1. Osteoporosis with pathologic fracture with previous L3 compression fracture and vertebroplasty back in 05/2016 and chronic L2 and T12 compression fractures treated conservatively. 2. Degenerative disc disease of the spine. 3. Hyperlipidemia. 4. Hypothyroidism with history of thyroid cancer. 5. Mild mitral regurgitation. 6. Adjustment disorder with anxiety and depression. 7. Dementia without behavioral disturbance. 8. Previous diverticulitis. 9. Osteoarthritis. 10.Essential tremor. 11.Prediabetes. 12.Essential hypertension, not on medications. REASON FOR ADMISSION: On the date of admission, this 86-year-old female was transferred back from [place] to [place] for further cares after surgical correction of fractures. She had OT and PT work with her. She had a splint in place from [place] and had follow-ups with her orthopedic doctor on 09/27 for a wound and skin checks. Everything had been healing and doing fine. She continue to work with therapies. She was continued on aspirin for DVT prophylaxis. Her blood pressures improved during her stay. She never required any medications. She never required any pain pills other than Tylenol and overall was doing well. LABORATORY DATA: Lab work during her stay was monitored. Her hemoglobin was 9.2 and improved up to 10.3 on 09/26. Otherwise, discussion was had with her and her regarding using medications like Forteo or TYMLOS for bone health. Unfortunately, she had already used the free sample of Forteo even though she never got the medication. The co-pay was going to be nearly $1000, so arrangements are being made to try to get her a sample of the TYMLOS medication. I discussed in depth the side effects and things to look out for, for her . Her daughter did call later with other concerns. There were especially concerned about diarrhea, however, this is not one of the side effects. Other side effects could include orthostatic hypotension, increased calcium levels, nausea, dizziness, even rare instance of osteosarcoma, which is a rare bone tumor, but this medication is used for 1-2 years as a daily shot and local injection site reactions are probably the most common thing to look out for. The patient will be going home on Home Health, so I told her that likely those nurses will be coming out to teach her how to use the medication. PHYSICAL EXAMINATION: Vital Signs: On discharge include a temperature 97.1, pulse 75, blood pressure 131/74, respiratory rate 16, and O2 of 95% on room air. General: She is in no acute distress. Heart: Regular rate and rhythm with murmur. Lungs: Sounds are clear to auscultation bilaterally without crackles or wheezes. Abdomen: Positive bowel sounds, soft and nontender. Extremities: Warm and dry. No edema. The left arm is examined. The incisions over the left upper shoulder are intact and well healing. Splint is in place on the left wrist. Otherwise, she has good cap refill in her fingers. The swelling and bruising have improved. Mental Status: She is alert. She recognizes her . HOME HEALTH ADDENDUM: The patient requires nursing, PT to assist and teach her to perform skills, especially home therapies and OT should be included as well for the hand therapy to aid in her healing from the recent fracture and surgery. I will periodically review this plan of care and [id number] documentation was done by Dr. Lorenzo on 09/30/2016. The patient is homebound due to her dementia and also limited mobility due to recent falls and fracture. FOLLOW UP: The patient will follow up with Dr. Lorenzo in the clinic on 10/11, but has appointments with Orthopedics on 10/20 and 10/27. She was given instructions to follow up with orthopedic recommendations for further therapies and wound cares and likely will be getting a new splint when she sees them for followup. She also has a shoulder immobilizer, which she is supposed to wear to protect her shoulder. MKA: 09/30/2016 18:10:31 MODL: 09/30/2016 20:52:56 /[id number]
== END 2016-09-30 09:50 | disposition home health service (06) | DRG 560 ==
LOC: VM.MS 12:10
PROVIDERS: ADMIT Internal Medicine; ATTEND Internal Medicine
DX: S42.202D Unspecified fracture of upper end of left humerus, subsequent encounter for fracture with routine healing (principal); D62 Acute posthemorrhagic anemia; S52.92XD Unspecified fracture of left forearm, subsequent encounter for closed fracture with routine healing; S52.202D Unspecified fracture of shaft of left ulna, subsequent encounter for closed fracture with routine healing; M48.54XD Collapsed vertebra, not elsewhere classified, thoracic region, subsequent encounter for fracture with routine healing; E78.5 Hyperlipidemia, unspecified; I10 Essential (primary) hypertension; E03.9 Hypothyroidism, unspecified; Z85.850 Personal history of malignant neoplasm of thyroid; I34.0 Nonrheumatic mitral (valve) insufficiency; F43.23 Adjustment disorder with mixed anxiety and depressed mood; F03.90 Unspecified dementia, unspecified severity, without behavioral disturbance, psychotic disturbance, mood disturbance, and anxiety; M19.90 Unspecified osteoarthritis, unspecified site; G25.0 Essential tremor; R73.03 Prediabetes; Z91.81 History of falling; Z96.652 Presence of left artificial knee joint; Z79.82 Long term (current) use of aspirin; Z79.899 Other long term (current) drug therapy; Z66 Do not resuscitate
CPT/HCPCS: 36415; 85025; 97110-GO; 97110-GP; 97116-GP; 97161-GP; 97165-GO; 97530-GP; 97535-GO; A9270-GY

== ENCOUNTER 2016-10-14 16:34 | Emergency (ER) | payer MEDICARE, BC ==
--- NOTE | 2016-10-14 16:46 | EDM.PDOC ---
ED HPI GENERAL MEDICAL PROBLEM - General Chief Complaint: Skin Complaint Stated Complaint: nose cut Time Seen by Provider: 10/14/16 16:36 Source of Information: Reports: Patient, Family History Limitations: Reports: Physical Impairment - History of Present Illness INITIAL COMMENTS - FREE TEXT/NARRATIVE: Patient comesin after falling in her living room at home. She tripped. She did not lose consciousness. Her glasses did lacerate the bridge of her nose. There is no misalignment of her nose or swelling. She denies pain. Patient has history of dementia, still at home with her who brings her in. Essential tremors. Does not take anticoagulation. She has no other complaints today. No neurological changes since her fall. and son bring her in against her wishes for evaluation. Onset: Today, Sudden Location: Reports: Face (nose) Front/Back Body Image: 1 - linear lac to bridge of nose Severity: Mild Improves with: Reports: Other (pressure held) Associated Symptoms: Reports: No Other Symptoms - Related Data Allergies Allergy/AdvReac Type Severity Reaction Status Date / Time codeine Allergy Cannot Verified 10/14/16 16:45 Remember Home Meds: Home Meds Aspirin [Low Dose Aspirin EC] 81 mg PO DAILY 11/11/13 [History] Donepezil HCl [Aricept] 10 mg PO BEDTIME 11/11/13 [History] Multivit-Min/FA/Lycopene/Lut [Centrum Silver] 1 tab PO DAILY 11/11/13 [History] LORazepam 0.5 mg PO DAILY 11/30/13 [History] Sertraline [Zoloft] 25 mg PO DAILY 06/06/16 [History] Acetaminophen [Acetaminophen Extra Strength] 1,000 mg PO TID 09/20/16 [History] Bisacodyl [Dulcolax] 5 mg PO BID PRN 09/20/16 [History] Calcium Citrate/Vitamin D3 [Calcium Cit-Vit D 315-200] 1 tab PO DAILY 09/20/16 [ History] Psyllium [Metamucil] 0.52 gm PO BEDTIME 09/20/16 [History] Levothyroxine [Synthroid] 100 mcg PO ACBREAKFAST #30 tablet 09/30/16 [Rx] Past Medical History Cardiovascular History: Reports: Heart Murmur, Hypertension Gastrointestinal History: Reports: Diverticulosis Musculoskeletal History: Reports: Back Pain, Chronic, Fracture, Osteoarthritis Neurological History: Reports: Alzheimers Disease Psychiatric History: Reports: Alzheimers Disease, Dementia, Depression Endocrine/Metabolic History: Reports: Hypothyroidism Oncologic (Cancer) History: Reports: Thyroid - Infectious Disease History Infectious Disease History: Reports: Chicken Pox - Past Surgical History Cardiovascular Surgical History: Reports: None GI Surgical History: Reports: None Endocrine Surgical History: Reports: Thyroidectomy Neurological Surgical History: Reports: Laminectomy Musculoskeletal Surgical History: Reports: ORIF Social & Family History - Family History Family Medical History: Noncontributory - Tobacco Use Smoking Status *Q: Never Smoker Years of Tobacco use: 3 Used Tobacco, but Quit: No Second Hand Smoke Exposure: No - Caffeine Use Caffeine Use: Reports: Coffee - Alcohol Use Days Per Week of Alcohol Use: 0 - Recreational Drug Use Recreational Drug Use: No ED ROS GENERAL - Review of Systems Review Of Systems: See Below Constitutional: Reports: No Symptoms HEENT: Reports: No Symptoms Respiratory: Reports: No Symptoms Cardiovascular: Reports: No Symptoms Endocrine: Reports: No Symptoms GI/Abdominal: Reports: No Symptoms : Reports: No Symptoms Musculoskeletal: Reports: No Symptoms Skin: Reports: Wound (cut on the nose) Neurological: Reports: No Symptoms Psychiatric: Reports: No Symptoms Hematologic/Lymphatic: Reports: No Symptoms Immunologic: Reports: No Symptoms ED EXAM, SKIN/RASH Exam: See Below Exam Limited By: Physical Impairment General Appearance: Alert, WD/WN, No Apparent Distress Eye Exam: Bilateral Eye: EOMI, PERRL Nose: Other (2 cm lac linear on bridge) Throat/Mouth: Normal Inspection Head: Normocephalic Neck: Normal Inspection Neurological: Alert, CN II-XII Intact, Sensory/Motor Deficit (essential tremors, ) Psychiatric: Normal Affect, Normal Mood Skin: Warm, Dry, Normal Color, No Rash Location, Skin: Face (nose) Characteristics: Linear Lymphatic: No Adenopathy ED SKIN PROCEDURES - Laceration/Wound Repair Middle Midline Nose Lac/Wound length In cm: 2 Appearance: Superficial, Linear Distal NVT: Neuro & Vascular Intact Anesthetic Type: Local Local Anesthesia - Lidocaine (Xylocaine): 1% Plain Local Anesthetic Volume: 2cc Skin Prep: Chlorhexidine (Hibiciens) Exploration/Debridement/Repair: Wound Explored, In a Bloodless Field, Explored to Base, No Foreign Material Found Closed with: Sutures Suture Size: other (6.0) # of Sutures: 3 Suture Type: Nylon, Interrupted Sterile Dressing Applied: Nurse Tetanus Status Addressed: Yes Complications: No Course - Vital Signs Last Recorded V/S: Last Vital Signs Temp 36.8 C 10/14/16 16:34 Pulse 86 10/14/16 16:34 Resp 16 10/14/16 16:34 BP 138/78 10/14/16 16:34 Pulse Ox 94 L 10/14/16 16:34 - Orders/Labs/Meds Meds: Medications Discontinued Medications Generic Name Dose Route Start Last Admin Trade Name Lori PRN Reason Stop Dose Admin Lidocaine HCl 5 ml 10/14/16 16:36 10/14/16 16:45 Xylocaine-Mpf 1% INJECT 10/14/16 16:37 5 ml ONETIME ONE Administration Departure - Departure Time of Disposition: 17:19 Disposition: Home, Self-Care 01 Condition: Good Clinical Impression: Laceration of nose without complication Qualifiers: Encounter type: initial encounter Qualified Code(s): S01.21XA - Laceration without foreign body of nose, initial encounter - Discharge Information Instructions: Mouth Laceration, [id number], Wound Infection, [id number] Referrals: Angelina Lorenzo, [Primary Care Provider] - Forms: ED Department Discharge Additional Instructions: Keep your wound clean and dry. You can shower and pat dry. Do no submerge in water; bathwater, pool, hot tub, river etc. See the clinic for suture removal in 7-10 days. Watch for signs of infection that can include fever over 101.5 F, increased swelling, redness, site is hot to the touch, and purulent drainage from the wound. You can call us with any questions or concerns at any time. - Problem List & Annotations (1) Laceration of nose without complication SNOMED Code(s): 374421725 Code(s): S01.21XA - LACERATION WITHOUT FOREIGN BODY OF NOSE, INITIAL ENCOUNTER Status: Acute Priority: Low Qualifiers: Encounter type: initial encounter Qualified Code(s): S01.21XA - Laceration without foreign body of nose, initial encounter - Problem List Review Problem List Initiated/Reviewed/Updated: Yes - Assessment/Plan Assessment:: Nasal laceration Plan: Keep your wound clean and dry. You can shower and pat dry. Do no submerge in water; bathwater, pool, hot tub, river etc. See the clinic for suture removal in 7-10 days. Watch for signs of infection that can include fever over 101.5 F, increased swelling, redness, site is hot to the touch, and purulent drainage from the wound. You can call us with any questions or concerns at any time.
[2016-10-14 16:55] VITALS: BP 138/78
== END 2016-10-14 17:19 | disposition home or self-care (01) ==
LOC: VM.ED 16:34
DX: S01.21XA Laceration without foreign body of nose, initial encounter (principal); I10 Essential (primary) hypertension; M19.90 Unspecified osteoarthritis, unspecified site; G30.9 Alzheimer's disease, unspecified; F02.80 Dementia in other diseases classified elsewhere, unspecified severity, without behavioral disturbance, psychotic disturbance, mood disturbance, and anxiety; E03.9 Hypothyroidism, unspecified; Z88.5 Allergy status to narcotic agent; Z79.82 Long term (current) use of aspirin; W25.XXXA Contact with sharp glass, initial encounter; W01.0XXA Fall on same level from slipping, tripping and stumbling without subsequent striking against object, initial encounter; Y92.009 Unspecified place in unspecified non-institutional (private) residence as the place of occurrence of the external cause
CPT/HCPCS: 12011; 99283; 99283-GF-25

== ENCOUNTER 2019-04-04 18:59 | Observation (INO) | payer MEDICARE, BC ==
[2019-04-04] MEDS ORDERED: Sodium Chloride 0.9% 10 ML Syringe FLUSH PRN (19:11)
--- NOTE | 2019-04-04 19:52 | CR ---
[id number] RAD/RAD Chest PA or AP 1V EXAM: RAD Chest PA or AP 1V INDICATION: CONFUSION COMPARISON: None. DISCUSSION: Cardiomediastinal silhouette is normal in size and contour. No infiltrate, effusion, pneumothorax, or edema. IMPRESSION: Negative for pneumonia or other significant abnormality in the chest. Espinoza Vallejo MD 04/04/191950 Thank you for allowing us to participate in the care of your patient.
--- NOTE | 2019-04-04 19:59 | EDM.PDOC ---
ED HPI GENERAL MEDICAL PROBLEM - General Chief Complaint: Neuro Symptoms/Deficits Stated Complaint: neuro deficits Time Seen by Provider: 04/04/19 19:05 Source of Information: Reports: Family History Limitations: Reports: No Limitations - History of Present Illness INITIAL COMMENTS - FREE TEXT/NARRATIVE: Pt. presents to ER via private vehicle. Pt. lives with her elderly at home. He states that the patient has been having problems with ambulation, decreased level of consciousness for at least 24 hours. He states that he noticed a change in her mentation yesterday afternoon. At that time, Pt. appeared to have trouble ambulating at home. She has advanced dementia and is ambulatory with assistance. Pt. daughter states that she normally has some verbal output but states that it became diminished last night as well. Pt. has not offered any complaint. states that she has had some cough and chest congestion for several days. No recent falls or trauma. He has not been checking her temp. No vomiting. Pt. med record indicates worsening mental status when seen by PCP back in Nov. She has not been seen by her primary since then, but family indicates that her dementia appears to be worsening as well. Family states, however, that she was able to ambulate with assistance, eat and swallow foods, but this had diminished since last evening. Onset: Today Onset Date: 04/04/19 Location: Reports: Generalized - Related Data Allergies Allergy/AdvReac Type Severity Reaction Status Date / Time codeine Allergy Cannot Verified 04/04/19 19:17 Remember Home Meds: Home Meds Donepezil HCl [Aricept] 10 mg PO BEDTIME 11/11/13 [History] Multivit-Min/FA/Lycopene/Lut [Centrum Silver] 1 tab PO DAILY 11/11/13 [History] Calcium Citrate/Vitamin D3 [Calcium Cit-Vit D 315-200] 1 tab PO DAILY 09/20/16 [ History] Psyllium [Metamucil] 0.52 gm PO BEDTIME 09/20/16 [History] Levothyroxine [Synthroid] 100 mcg PO ACBREAKFAST #30 tablet 09/30/16 [Rx] Cholecalciferol (Vitamin D3) [Vitamin D3] 2,000 unit PO DAILY 04/04/19 [History] Ipratropium [Atrovent HFA Inh] 1 puff .XX BID 04/04/19 [History] Past Medical History Cardiovascular History: Reports: Heart Murmur, Hypertension Gastrointestinal History: Reports: Diverticulosis Musculoskeletal History: Reports: Back Pain, Chronic, Fracture, Osteoarthritis Neurological History: Reports: Alzheimers Disease Psychiatric History: Reports: Alzheimers Disease, Dementia, Depression Endocrine/Metabolic History: Reports: Hypothyroidism Oncologic (Cancer) History: Reports: Thyroid - Infectious Disease History Infectious Disease History: Reports: Chicken Pox - Past Surgical History Cardiovascular Surgical History: Reports: None GI Surgical History: Reports: None Endocrine Surgical History: Reports: Thyroidectomy Neurological Surgical History: Reports: Laminectomy Musculoskeletal Surgical History: Reports: ORIF Social & Family History - Family History Family Medical History: Noncontributory - Caffeine Use Caffeine Use: Reports: Coffee ED ROS GENERAL - Review of Systems Review Of Systems: Unable To Obtain Reason Not Obtained: non-verbal ED EXAM, GENERAL - Physical Exam Exam: See Below Exam Limited By: No Limitations General Appearance: Alert, WD/WN, No Apparent Distress Eye Exam: Bilateral Eye: EOMI Course - Vital Signs Last Recorded V/S: Last Vital Signs Temp 36.8 C 04/04/19 20:42 Pulse 70 04/04/19 20:42 Resp 16 04/04/19 20:42 BP 144/66 H 04/04/19 20:42 Pulse Ox 95 04/04/19 20:42 - Orders/Labs/Meds Orders: Active Orders 24 hr Category Date Time Status Patient Status [ADT] Routine ADT 04/04/19 20:42 Ordered EKG Documentation Completion [RC] STAT Care 04/04/19 19:11 Active CULTURE BLOOD [BC] Stat Lab 04/04/19 19:27 Received CULTURE BLOOD [BC] Stat Lab 04/04/19 19:37 Results Sodium Chloride 0.9% [Saline Flush] Med 04/04/19 19:11 Active 10 ml FLUSH ASDIRECTED PRN Blood Culture x2 Reflex Set [OM.PC] Stat Oth 04/04/19 19:12 Ordered Peripheral IV Insertion Adult [OM.PC] Routine Oth 04/04/19 19:12 Ordered Medication Orders Sodium Chloride (Saline Flush) 10 ml FLUSH ASDIRECTED PRN PRN Reason: Keep Vein Open Labs: Laboratory Tests 04/04/19 04/04/19 04/04/19 Range/Units 19:27 19:27 19:27 WBC 8.0 (4.0-10.0) x10^3/uL RBC 4.51 (4.00-5.50) x10^6/uL Hgb 12.7 D (12.0-16.0) g/dL Hct 39.6 (33.0-47.0) % MCV 87.8 D (78.0-93.0) fL MCH 28.2 (26.0-32.0) pg MCHC 32.1 (32.0-36.0) g/dL RDW Coeff of [place]one 13.1 (10.0-15.0) % Plt Count 334 D (130-400) x10^3/uL Neut % (Auto) 63.3 (50.0-80.0) % Lymph % (Auto) 19.8 L (25.0-50.0) % [place] % (Auto) 10.1 (2.0-11.0) % Eos % (Auto) 5.9 H (0.0-4.0) % Baso % (Auto) 0.9 (0.2-1.2) % PT 10.4 (10.0-12.8) SEC INR 0.9 L (2.0-3.5) Sodium 137 (136-145) mmol/L Potassium 3.8 (3.5-5.1) mmol/L Chloride 102 (98-107) mmol/L Carbon Dioxide 28 (21-32) mmol/L Anion Gap 10.8 (10-20) mmol/L BUN 18 (7-18) mg/dL Creatinine 0.9 (0.55-1.02) mg/dL Est Cr Clr Drug Dosing TNP Estimated GFR (MDRD) 59 Glucose 233 H (74-106) mg/dL Lactic Acid (0.4-2.0) mmol/L Calcium 8.4 L (8.5-10.1) mg/dL Corrected Calcium 9.28 (8.5-10.1) mg/dL Phosphorus 4.4 (2.6-4.7) mg/dL Magnesium 2.0 (1.8-2.4) mg/dL Total Bilirubin 0.4 (0.2-1.0) mg/dL AST 13 L (15-37) U/L ALT 17 (14-59) U/L Alkaline Phosphatase 89 (46-116) U/L Troponin I < 0.017 (<=0.056) ng/mL C-Reactive Protein 3.7 H (<=0.9) mg/dL Total Protein 7.0 (6.4-8.2) g/dL Albumin 2.9 L (3.4-5.0) g/dL Globulin 4.1 Albumin/Globulin Ratio 0.71 TSH, Ultra Sensitive 1.038 (0.358-3.74) uIU/mL Urine Color (YELLOW) Urine Appearance (CLEAR) Urine pH (5.0-8.0) Ur Specific [place] Urine Protein (NEGATIVE) mg/dL Urine Glucose (UA) (NEGATIVE) mg/dL Urine Ketones (NEGATIVE) mg/dL Urine Occult Blood (NEGATIVE) Urine Nitrite (NEGATIVE) Urine Bilirubin (NEGATIVE) Urine Urobilinogen (0.2) EU/dL Ur Leukocyte Esterase (NEGATIVE) U Hyaline Cast (Auto) Urine RBC (NOT SEEN) /HPF Urine WBC (NOT SEEN) /HPF Ur Squamous Epith Cells (NEGATIVE) /HPF Urine Bacteria (NEGATIVE) /HPF Urine Mucus (NEGATIVE) /LPF Ethyl Alcohol < 3 (0-3) mg/dL 04/04/19 04/04/19 Range/Units 19:27 20:19 WBC (4.0-10.0) x10^3/uL RBC (4.00-5.50) x10^6/uL Hgb (12.0-16.0) g/dL Hct (33.0-47.0) % MCV (78.0-93.0) fL MCH (26.0-32.0) pg MCHC (32.0-36.0) g/dL RDW Coeff of [place] (10.0-15.0) % Plt Count (130-400) x10^3/uL Neut % (Auto) (50.0-80.0) % Lymph % (Auto) (25.0-50.0) % [place] % (Auto) (2.0-11.0) % Eos % (Auto) (0.0-4.0) % Baso % (Auto) (0.2-1.2) % PT (10.0-12.8) SEC INR (2.0-3.5) Sodium (136-145) mmol/L Potassium (3.5-5.1) mmol/L Chloride (98-107) mmol/L Carbon Dioxide (21-32) mmol/L Anion Gap (10-20) mmol/L BUN (7-18) mg/dL Creatinine (0.55-1.02) mg/dL Est Cr Clr Drug Dosing Estimated GFR (MDRD) Glucose (74-106) mg/dL Lactic Acid 1.0 (0.4-2.0) mmol/L Calcium (8.5-10.1) mg/dL Corrected Calcium (8.5-10.1) mg/dL Phosphorus (2.6-4.7) mg/dL Magnesium (1.8-2.4) mg/dL Total Bilirubin (0.2-1.0) mg/dL AST (15-37) U/L ALT (14-59) U/L Alkaline Phosphatase (46-116) U/L Troponin I (<=0.056) ng/mL C-Reactive Protein (<=0.9) mg/dL Total Protein (6.4-8.2) g/dL Albumin (3.4-5.0) g/dL Globulin Albumin/Globulin Ratio TSH, Ultra Sensitive (0.358-3.74) uIU/mL Urine Color Yellow (YELLOW) Urine Appearance Slightly cloudy H (CLEAR) Urine pH 5.5 (5.0-8.0) Ur Specific [place] 1.025 Urine Protein Trace H (NEGATIVE) mg/dL Urine Glucose (UA) Negative (NEGATIVE) mg/dL Urine Ketones Negative (NEGATIVE) mg/dL Urine Occult Blood Trace-lysed H (NEGATIVE) Urine Nitrite Positive H (NEGATIVE) Urine Bilirubin Negative (NEGATIVE) Urine Urobilinogen 0.2 (0.2) EU/dL Ur Leukocyte Esterase Small H (NEGATIVE) U Hyaline Cast (Auto) Rare Urine RBC Not seen (NOT SEEN) /HPF Urine WBC 20-30 H (NOT SEEN) /HPF Ur Squamous Epith Cells Rare (NEGATIVE) /HPF Urine Bacteria Moderate H (NEGATIVE) /HPF Urine Mucus Rare H (NEGATIVE) /LPF Ethyl Alcohol (0-3) mg/dL Meds: Medications Generic Name Dose Route Start Last Admin Trade Name Freq PRN Reason Stop Dose Admin Sodium Chloride 10 ml 04/04/19 19:11 Saline Flush FLUSH ASDIRECTED PRN Keep Vein Open - Radiology Interpretation Free Text/Narrative:: CT brain without contrast negative chest x-ray negative for acute pathology Departure - Departure Time of Disposition: 20:44 Disposition: Refer to Observation Clinical Impression: Urinary tract infection, Decreased level of consciousness - Discharge Information Referrals: Angelina Lorenzo DO [Primary Care Provider] - Forms: ED Department Discharge Sepsis Event Note - Evaluation Sepsis Screening Result: No Definite Risk - Focused Exam Vital Signs: Vital Signs Temp Pulse Resp BP Pulse Ox 04/04/19 20:42 36.8 C 70 16 144/66 H 95 04/04/19 19:05 36.4 C 79 16 182/70 H 79 L Date Exam was Performed: 04/04/19 Time Exam was Performed: 20:44 - My Orders Last 24 Hours: My Active Orders 04/04/19 19:11 EKG Documentation Completion [RC] STAT Sodium Chloride 0.9% [Saline Flush] 10 ml FLUSH ASDIRECTED PRN 04/04/19 19:12 Blood Culture x2 Reflex Set [OM.PC] Stat Peripheral IV Insertion Adult [OM.PC] Routine 04/04/19 19:27 CULTURE BLOOD [BC] Stat 04/04/19 19:37 CULTURE BLOOD [BC] Stat 04/04/19 20:42 Patient Status [ADT] Routine - Assessment/Plan Admission H&P: Please use this note as an admission H&P Last 24 Hours: My Active Orders 04/04/19 19:11 EKG Documentation Completion [RC] STAT Sodium Chloride 0.9% [Saline Flush] 10 ml FLUSH ASDIRECTED PRN 04/04/19 19:12 Blood Culture x2 Reflex Set [OM.PC] Stat Peripheral IV Insertion Adult [OM.PC] Routine 04/04/19 19:27 CULTURE BLOOD [BC] Stat 04/04/19 19:37 CULTURE BLOOD [BC] Stat 04/04/19 20:42 Patient Status [ADT] Routine Plan: Spoke with Dr. Arellano regarding this patient. She feels that patient does not meet acute criteria. She will subsequently admitted observation. Pt. was given rocephin 2 gm IV. Start normal saline at 200ml/hr. for now. Attempting to obtain code status from family at this time.
[2019-04-04 20:16] LABS: CHLORIDE,CL 102 mmol/L (98-107); SODIUM,NA 137 mmol/L (136-145)
[2019-04-04 20:17] LABS: ANION GAP 10.8 mmol/L (10-20)
--- NOTE | 2019-04-04 20:23 | CT ---
[id number] CT/CT Head WO IV EXAM: CT Head WO IV CLINICAL DATA: CONFUSION COMPARISON STUDY: September 02, 2016. FINDINGS: No intracranial hemorrhage, extra-axial fluid collection, mass, or acute ischemia. 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 Findings are similar to prior examination. Paranasal sinuses and mastoid air cells are clear. IMPRESSION: No acute findings. Espinoza Vallejo MD 04/04/192021 Thank you for allowing us to participate in the care of your patient.
[2019-04-04] MEDS ORDERED: cefTRIAXone 2 GM Vial IVPUSH ONE (20:58)
[2019-04-04] MEDS: Sodium Chloride 0.9% 1,000 ML IV SCH ×2 (22:47→22:48)
[2019-04-05 06:57] VITALS: BP 153/86; PULSE 71
[2019-04-05] MEDS ORDERED: Levothyroxine 100 MCG Tab PO SCH (07:00)
[2019-04-05] MEDS ORDERED: Cholecalciferol (Vitamin D3) 25 MCG Tab PO SCH (08:00)
[2019-04-05] MEDS ORDERED: Multivitamin, Stress Formula with Zinc Tab PO SCH (08:00)
[2019-04-05] MEDS ORDERED: Calcium Carbonate/Vitamin D3 1250 MG-200 Unit Tab PO SCH (08:00)
--- NOTE | 2019-04-05 10:06 | PCM.PN ---
- General Info Date of Service: 04/05/19 Admission Dx/Problem (Free Text): Pt. did well overnight. She received her first dose of rocephin (2 gm) in ER. She was kept on Normal saline at 200ml/hr overnight. This AM, pt. was much more alert, able to transfer to a chair and was sitting upright working with PT on rounds. Pt. continues to be non-verbal, but she is able to follow commands this AM. Subsequently, pt. is unable to provide an accurate ROS. White count and lactic acid were normal again this AM. She had been afebrile since admission. - Review of Systems General: Reports: No Symptoms - Patient Data Vitals - Most Recent: Last Vital Signs Temp 36.7 C 04/05/19 06:00 Pulse 71 04/05/19 06:00 Resp 17 04/05/19 06:00 BP 153/86 H 04/05/19 06:00 Pulse Ox 94 L 04/05/19 06:00 Weight - Most Recent: 45.359 kg I&O - Last 24 Hours: Intake & Output 04/04/19 04/05/19 04/05/19 22:59 06:59 14:59 Intake Total 1600 Balance 1600 Lab Results Last 24 Hours: Laboratory Results - last 24 hr 04/04/19 04/04/19 04/04/19 Range/Units 19:27 19:27 19:27 WBC 8.0 (4.0-10.0) x10^3/uL RBC 4.51 (4.00-5.50) x10^6/uL Hgb 12.7 D (12.0-16.0) g/dL Hct 39.6 (33.0-47.0) % MCV 87.8 D (78.0-93.0) fL MCH 28.2 (26.0-32.0) pg MCHC 32.1 (32.0-36.0) g/dL RDW Coeff of [place]one 13.1 (10.0-15.0) % Plt Count 334 D (130-400) x10^3/uL Neut % (Auto) 63.3 (50.0-80.0) % Lymph % (Auto) 19.8 L (25.0-50.0) % [place] % (Auto) 10.1 (2.0-11.0) % Eos % (Auto) 5.9 H (0.0-4.0) % Baso % (Auto) 0.9 (0.2-1.2) % PT 10.4 (10.0-12.8) SEC INR 0.9 L (2.0-3.5) Sodium 137 (136-145) mmol/L Potassium 3.8 (3.5-5.1) mmol/L Chloride 102 (98-107) mmol/L Carbon Dioxide 28 (21-32) mmol/L Anion Gap 10.8 (10-20) mmol/L BUN 18 (7-18) mg/dL Creatinine 0.9 (0.55-1.02) mg/dL Est Cr Clr Drug Dosing TNP Estimated GFR (MDRD) 59 Glucose 233 H (74-106) mg/dL Lactic Acid (0.4-2.0) mmol/L Calcium 8.4 L (8.5-10.1) mg/dL Corrected Calcium 9.28 (8.5-10.1) mg/dL Phosphorus 4.4 (2.6-4.7) mg/dL Magnesium 2.0 (1.8-2.4) mg/dL Total Bilirubin 0.4 (0.2-1.0) mg/dL AST 13 L (15-37) U/L ALT 17 (14-59) U/L Alkaline Phosphatase 89 (46-116) U/L Troponin I < 0.017 (<=0.056) ng/mL C-Reactive Protein 3.7 H (<=0.9) mg/dL Total Protein 7.0 (6.4-8.2) g/dL Albumin 2.9 L (3.4-5.0) g/dL Globulin 4.1 Albumin/Globulin Ratio 0.71 TSH, Ultra Sensitive 1.038 (0.358-3.74) uIU/mL Urine Color (YELLOW) Urine Appearance (CLEAR) Urine pH (5.0-8.0) Ur Specific [place] Urine Protein (NEGATIVE) mg/dL Urine Glucose (UA) (NEGATIVE) mg/dL Urine Ketones (NEGATIVE) mg/dL Urine Occult Blood (NEGATIVE) Urine Nitrite (NEGATIVE) Urine Bilirubin (NEGATIVE) Urine Urobilinogen (0.2) EU/dL Ur Leukocyte Esterase (NEGATIVE) U Hyaline Cast (Auto) Urine RBC (NOT SEEN) /HPF Urine WBC (NOT SEEN) /HPF Ur Squamous Epith Cells (NEGATIVE) /HPF Urine Bacteria (NEGATIVE) /HPF Urine Mucus (NEGATIVE) /LPF Ethyl Alcohol < 3 (0-3) mg/dL 04/04/19 04/04/19 04/05/19 Range/Units 19:27 20:19 08:24 WBC 5.5 (4.0-10.0) x10^3/uL RBC 4.30 (4.00-5.50) x10^6/uL Hgb 12.3 (12.0-16.0) g/dL Hct 38.0 (33.0-47.0) % MCV 88.4 (78.0-93.0) fL MCH 28.6 (26.0-32.0) pg MCHC 32.4 (32.0-36.0) g/dL RDW Coeff of [place] 13.0 (10.0-15.0) % Plt Count 301 (130-400) x10^3/uL Neut % (Auto) 59.8 (50.0-80.0) % Lymph % (Auto) 25.0 (25.0-50.0) % [place] % (Auto) 7.9 (2.0-11.0) % Eos % (Auto) 6.4 H (0.0-4.0) % Baso % (Auto) 0.9 (0.2-1.2) % PT (10.0-12.8) SEC INR (2.0-3.5) Sodium (136-145) mmol/L Potassium (3.5-5.1) mmol/L Chloride (98-107) mmol/L Carbon Dioxide (21-32) mmol/L Anion Gap (10-20) mmol/L BUN (7-18) mg/dL Creatinine (0.55-1.02) mg/dL Est Cr Clr Drug Dosing Estimated GFR (MDRD) Glucose (74-106) mg/dL Lactic Acid 1.0 (0.4-2.0) mmol/L Calcium (8.5-10.1) mg/dL Corrected Calcium (8.5-10.1) mg/dL Phosphorus (2.6-4.7) mg/dL Magnesium (1.8-2.4) mg/dL Total Bilirubin (0.2-1.0) mg/dL AST (15-37) U/L ALT (14-59) U/L Alkaline Phosphatase (46-116) U/L Troponin I (<=0.056) ng/mL C-Reactive Protein (<=0.9) mg/dL Total Protein (6.4-8.2) g/dL Albumin (3.4-5.0) g/dL Globulin Albumin/Globulin Ratio TSH, Ultra Sensitive (0.358-3.74) uIU/mL Urine Color Yellow (YELLOW) Urine Appearance Slightly cloudy H (CLEAR) Urine pH 5.5 (5.0-8.0) Ur Specific [place] 1.025 Urine Protein Trace H (NEGATIVE) mg/dL Urine Glucose (UA) Negative (NEGATIVE) mg/dL Urine Ketones Negative (NEGATIVE) mg/dL Urine Occult Blood Trace-lysed H (NEGATIVE) Urine Nitrite Positive H (NEGATIVE) Urine Bilirubin Negative (NEGATIVE) Urine Urobilinogen 0.2 (0.2) EU/dL Ur Leukocyte Esterase Small H (NEGATIVE) U Hyaline Cast (Auto) Rare Urine RBC Not seen (NOT SEEN) /HPF Urine WBC 20-30 H (NOT SEEN) /HPF Ur Squamous Epith Cells Rare (NEGATIVE) /HPF Urine Bacteria Moderate H (NEGATIVE) /HPF Urine Mucus Rare H (NEGATIVE) /LPF Ethyl Alcohol (0-3) mg/dL 04/05/19 Range/Units 08:24 WBC (4.0-10.0) x10^3/uL RBC (4.00-5.50) x10^6/uL Hgb (12.0-16.0) g/dL Hct (33.0-47.0) % MCV (78.0-93.0) fL MCH (26.0-32.0) pg MCHC (32.0-36.0) g/dL RDW Coeff of [place] (10.0-15.0) % Plt Count (130-400) x10^3/uL Neut % (Auto) (50.0-80.0) % Lymph % (Auto) (25.0-50.0) % [place] % (Auto) (2.0-11.0) % Eos % (Auto) (0.0-4.0) % Baso % (Auto) (0.2-1.2) % PT (10.0-12.8) SEC INR (2.0-3.5) Sodium (136-145) mmol/L Potassium (3.5-5.1) mmol/L Chloride (98-107) mmol/L Carbon Dioxide (21-32) mmol/L Anion Gap (10-20) mmol/L BUN (7-18) mg/dL Creatinine (0.55-1.02) mg/dL Est Cr Clr Drug Dosing Estimated GFR (MDRD) Glucose (74-106) mg/dL Lactic Acid 1.1 (0.4-2.0) mmol/L Calcium (8.5-10.1) mg/dL Corrected Calcium (8.5-10.1) mg/dL Phosphorus (2.6-4.7) mg/dL Magnesium (1.8-2.4) mg/dL Total Bilirubin (0.2-1.0) mg/dL AST (15-37) U/L ALT (14-59) U/L Alkaline Phosphatase (46-116) U/L Troponin I (<=0.056) ng/mL C-Reactive Protein (<=0.9) mg/dL Total Protein (6.4-8.2) g/dL Albumin (3.4-5.0) g/dL Globulin Albumin/Globulin Ratio TSH, Ultra Sensitive (0.358-3.74) uIU/mL Urine Color (YELLOW) Urine Appearance (CLEAR) Urine pH (5.0-8.0) Ur Specific [place] Urine Protein (NEGATIVE) mg/dL Urine Glucose (UA) (NEGATIVE) mg/dL Urine Ketones (NEGATIVE) mg/dL Urine Occult Blood (NEGATIVE) Urine Nitrite (NEGATIVE) Urine Bilirubin (NEGATIVE) Urine Urobilinogen (0.2) EU/dL Ur Leukocyte Esterase (NEGATIVE) U Hyaline Cast (Auto) Urine RBC (NOT SEEN) /HPF Urine WBC (NOT SEEN) /HPF Ur Squamous Epith Cells (NEGATIVE) /HPF Urine Bacteria (NEGATIVE) /HPF Urine Mucus (NEGATIVE) /LPF Ethyl Alcohol (0-3) mg/dL [place] Results Last 24 Hours: Microbiology 04/04/19 19:37 Anaerobic Blood Culture - Final Blood - Venous - Lab Draw Med Orders - Current: Current Medications Calcium Carbonate (Calcium Carbonate/Vitamin D 1250 Mg-200 Unit) 1 tab PO DAILY [facility] Last Admin: 04/05/19 09:53 Dose: Not Given Ceftriaxone Sodium (Rocephin) 1 gm IVPUSH DAILY [facility] Cholecalciferol (Vitamin D3) 50 mcg PO DAILY [facility] Last Admin: 04/05/19 09:53 Dose: Not Given Donepezil HCl (Aricept) 10 mg PO BEDTIME [facility] Sodium Chloride (Normal Saline) 1,000 mls @ 200 mls/hr IV ASDIRECTED [facility] Last Admin: 04/04/19 22:48 Dose: 200 mls/hr Levothyroxine Sodium (Synthroid) 100 mcg PO ACBREAKFAST [facility] Last Admin: 04/05/19 06:20 Dose: Not Given Sodium Chloride (Saline Flush) 10 ml FLUSH ASDIRECTED PRN PRN Reason: Keep Vein Open Vitamin B Complex/Vit C/Vit E/Zinc (Stress Formula With Zinc) 1 tab PO DAILY [facility] Last Admin: 04/05/19 09:53 Dose: Not Given Discontinued Medications Ceftriaxone Sodium (Rocephin) 2 gm IVPUSH STAT ONE Stop: 04/04/19 20:59 Last Admin: 04/04/19 21:07 Dose: 2 gm Non-Formulary Medication (Calcium Citrate/Vitamin D3 [Calcium Cit-Vit D 315-200] ) 1 tab PO DAILY [facility] - Exam General: Alert, Oriented HEENT: Pupils Equal, Pupils Reactive, EOMI, Mucous Membr. Moist/[place] Neck: Supple Lungs: Clear to Auscultation, Normal Respiratory Effort Cardiovascular: Regular Rate, Regular Rhythm GI/Abdominal Exam: Soft, Non-Tender, No Distention, No Mass (Female) Exam: Deferred Back Exam: Normal Inspection, Full Range of Motion Extremities: Normal Inspection, Normal Range of Motion, Non-Tender, No Pedal Edema, Normal Capillary Refill Peripheral Pulses: 4+: Radial (L) Skin: Warm, Dry, Intact Neurological: No New Focal Deficit, Other (No facial droop. ) Psy/Mental Status: Other (See HPI. Pt. is more alert this AM, but still not speaking.) Sepsis Event Note - Evaluation Sepsis Screening Result: No Definite Risk - Focused Exam Vital Signs: Vital Signs Temp Pulse Resp BP BP Pulse Ox 04/05/19 06:00 36.7 C 71 17 153/86 H 94 L 04/05/19 01:58 36.8 C 82 17 170/70 H 99 Date Exam was Performed: 04/05/19 Time Exam was Performed: 10:01 - Problem List Review Problem List Initiated/Reviewed/Updated: Yes - My Orders Last 24 Hours: My Active Orders 04/04/19 19:11 EKG Documentation Completion [RC] STAT Sodium Chloride 0.9% [Saline Flush] 10 ml FLUSH ASDIRECTED PRN 04/04/19 19:12 Blood Culture x2 Reflex Set [OM.PC] Stat Peripheral IV Insertion Adult [OM.PC] Routine 04/04/19 19:27 CULTURE BLOOD [BC] Stat 04/04/19 19:37 CULTURE BLOOD [BC] Stat 04/04/19 20:42 Patient Status [ADT] Routine 04/04/19 20:57 Code Status [Resuscitation Status] Routine 04/04/19 20:59 Dietary Supplements [RC] 0730,1730 04/04/19 21:51 Oxygen Therapy [RC] 08,20 Up With Assistance [RC] 10,16 VTE/DVT Education [RC] PER UNIT ROUTINE Vital Signs [RC] 06,10,14,18,22,02 04/04/19 22:13 Dietary Supplements [RC] 0730,1730 04/04/19 22:15 Sodium Chloride 0.9% [Normal Saline] 1,000 ml IV ASDIRECTED 04/05/19 06:14 Telemetry Monitoring [Cardiac Monitoring] [RC] 06,10,14,18,22,02 04/05/19 07:00 Levothyroxine [Synthroid] 100 mcg PO ACBREAKFAST 04/05/19 08:00 Calcium Carbonate/Vitamin D3 [Calcium Carbonate/Vitamin D 1250 MG-200 Unit] 1 tab PO DAILY Cholecalciferol (Vitamin D3) [Vitamin D3] 50 mcg PO DAILY Multivitamins with Zinc [Stress Formula with Zinc] 1 tab PO DAILY 04/05/19 08:02 Consult to Occupational Therapy [OT Evaluation and Treatment] [CONS] Routine Consult to Physical Therapy [PT Evaluation and Treatment] [CONS] Routine 04/05/19 08:03 Consult to Case Management/Dairy Manufacturing Technologist [CONS] Routine 04/05/19 20:00 Donepezil [Aricept] 10 mg PO BEDTIME 04/05/19 22:00 cefTRIAXone [Rocephin] 1 gm IVPUSH DAILY 04/05/19 Breakfast Nothing per Oral Now Diet [DIET] 04/05/19 Lunch Regular Diet [DIET] - Plan Plan:: IV fluid was decreased to 125ml/hr. Rocephin 1 gm every 24 hours. Will attempt to feed her today-her has to feed her all the time. Care will be assumed by Dr. Angelina Lorenzo later this afternoon. PT/OT and social media campaign manager to see. All care is provided by the patient's elderly . Will determine need for possible other services.
[2019-04-05] MEDS ORDERED: Donepezil 10 MG Tab PO SCH (20:00)
[2019-04-05] MEDS ORDERED: cefTRIAXone 1 GM Vial IVPUSH SCH (22:00)
--- NOTE | 2019-04-05 22:50 | DISCH ---
PRIMARY DISCHARGE DIAGNOSES: 1. Urinary tract infection. 2. Decreased level of consciousness due to urinary tract infection. 3. Underlying dementia without behavioral disturbance, possibly underlying Parkinson's. 4. Chronic anxiety. 5. Hypothyroidism due to thyroid surgery for cancer. 6. Essential hypertension. 7. Essential tremor. 8. Osteoporosis with previous fractures and prediabetes. REASON FOR ADMISSION: On the date of admission, this 89-year-old female was brought in by her . She was too weak. She needed help to get out of the car. She had been not eating as well over the past few days, had sort of been pocketing her food in her mouth. She was not having any diarrhea or vomiting, and in fact she was more constipated. did have some MiraLAX, which he gave her, and she had a bowel movement the day prior to admission. Her lab work showed a normal white count. She had no fever or chills. Her UA did show 20-30 wbc's. Unfortunately, the urine could not be cultured. She did have a glucose of 233. She otherwise had a head CT that did not show any acute findings and a chest x-ray that did not show any infection. Her TSH 1.038. She had an alcohol level that was normal. Otherwise, she did get IV Rocephin. She was admitted to the hospital. She was eating and drinking okay. Voiding frequently, but not having any burning with urination. Getting up with assistance. She walked with PT 2 times. They felt she was doing much better and was back to her baseline. She received some IV fluids, but those were discontinued as she was eating and drinking better and it was felt that she was doing well enough to return home. I spoke with the and caregiver, niece, family member, who has been coming down to help them about 3 times a week. Decision was made that the patient could be discharged on Bactrim for 4 more doses and home health. OBJECTIVE: Vital signs: On discharge, her blood pressure was elevated at 153/86, and in fact the patient's blood pressure has done quite well in the clinic and at home. Therefore, she is no longer even on blood pressure medications, so no changes were made. Her temperature was 98.1, her pulse was 71, her respiratory rate 17, and her O2 was 94% on room air. General: She was in no acute distress. Heart: Regular rate and rhythm. S1, S2. She did have a murmur. Lungs: Sounds were clear to auscultation bilaterally without crackles or wheezes. Abdomen: Soft with positive bowel sounds. Nontender. Extremities: Warm and dry with no edema. Mental status: The patient was not able to answer orientation questions, but she did a good job about answering yes or no to a few things. She did smile. She made some eye contact. When she did answer yes, it was appropriate. DISCHARGE PLANS AND INSTRUCTIONS: She will follow up in the clinic with Dr. Lorenzo in a couple of weeks time. She will complete 4 more doses of Bactrim on discharge. She got a dose of IV Rocephin here. She will have home health for PT and nursing. She will continue to get the caregiver help. Did discuss possibility of assisted living. The did not seem to be interested in that. [id number] encounter occurred with myself on 04/05/2019. The primary reason for home health is for worsening dementia with recent UTI, which resulted in increased weakness, which impairs her mobility. She will need frequent teaching and assessments to monitor her blood pressure and see if medications are indicated. Again, the patient is homebound due to her impaired mobility from her weakness due to underlying dementia with the recent event of a hospitalization for a bladder infection. There was also some concern about the trouble swallowing. However, this was felt to be more behavioral with just pocketing food. Speech did not see her in the hospital. However, if concerns arise, she can be seen by Speech through Home Health and OT can see her for assistance with ADLs. Due to her impaired mobility, absences from home are infrequent and require taxing effort. I will periodically review this plan of care. I will likely get labs A1c and bmp at her follow up visit MKA: 04/05/2019 17:04:03 MODL: 04/05/2019 22:42:02 /[id number] AUDREY
== END 2019-04-05 14:50 | disposition home health service (06) ==
LOC: VM.ED 18:59 → VM.MS 20:42
PROVIDERS: ADMIT Physician Assistant; ATTEND Physician Assistant
DX: N39.0 Urinary tract infection, site not specified (principal); G30.9 Alzheimer's disease, unspecified; F02.80 Dementia in other diseases classified elsewhere, unspecified severity, without behavioral disturbance, psychotic disturbance, mood disturbance, and anxiety; F41.9 Anxiety disorder, unspecified; F32.9 Major depressive disorder, single episode, unspecified; E89.0 Postprocedural hypothyroidism; I10 Essential (primary) hypertension; M81.0 Age-related osteoporosis without current pathological fracture; R73.03 Prediabetes; Z87.310 Personal history of (healed) osteoporosis fracture; Z79.899 Other long term (current) drug therapy; Z85.850 Personal history of malignant neoplasm of thyroid; Z88.5 Allergy status to narcotic agent
CPT/HCPCS: 36415; 70450; 71045; 80053; 80307; 81001; 83605; 83735; 84100; 84443; 84484; 85025; 85610; 86140; 87040; 93005; 96361; 96374; 97116-GP; 97161-GP; 99285-25; G0378; J0696; J7030